=== PATIENT | male | born 1935 | race Caucasian/White ===

== ENCOUNTER 2016-09-24 11:33 | Emergency (ER) | payer MEDICARE ==
[2016-09-24] MEDS ORDERED: Ondansetron 4 MG/2 ML SDV IVPUSH ONE (11:57)
[2016-09-24] MEDS ORDERED: Sodium Chloride 0.9% 10 ML Syringe FLUSH PRN (11:57)
[2016-09-24] MEDS ORDERED: HYDROmorphone 1 MG/ML Syringe IVPUSH ONE (11:57)
[2016-09-24] MEDS ORDERED: Sodium Chloride 0.9% 1,000 ML IV SCH (12:00)
--- NOTE | 2016-09-24 12:04 | EDM.PDOC ---
ED HPI GENERAL MEDICAL PROBLEM - General Chief Complaint: Chest Pain Stated Complaint: SOB Time Seen by Provider: 09/24/16 11:42 Source of Information: Reports: Patient History Limitations: Reports: No Limitations - History of Present Illness INITIAL COMMENTS - FREE TEXT/NARRATIVE: the patient is a 72-year-old male with a history of multiple myeloma, atrial fibrillation, coronary disease, diabetes, hyperlipidemia, hypothyroidism, intercostal neuralgia, and CKD. He presents to the ED complaining of substernal chest discomfort. States 3 weeks prior he was moving a chair while eating. When doing so he fell backwards on his back. Since then has developed this pain to his chest described as severe worsened with coughing, palpation, turning left, and with inspiration. States he is chronically short of breath but notices increased recently due to inability to take a deep breath. He's had no diaphoresis, dizziness, presyncope or syncopal episodes, fever/chills, nausea/ vomiting, radiation of discomfort. Pain is currently a 10 out of 10. Described as being sharp with aggravating factors. Past medical history: Multiple myeloma currently in relapse, coronary disease, atrial position, pacemaker device, diabetes, hyperlipidemia, hypothyroidism, neuropathy, GERD, DJD, anemia Current medications include Decadron, Cymbalta, OxyContin, lysine, albuterol, fentanyl patch, potassium chloride, Protonix, hydromorphone, peroneal, sural toe , vitamin D 3, metoprolol succinate, acyclovir, Bactrim, levothyroxine, Zocor, acetaminophen, MiraLax, Duration: Constant, Waxing/Waning Location: Reports: Chest Quality: Reports: Ache, Pressure, Sharp, Throbbing Severity: Severe Improves with: Reports: Rest Worsens with: Reports: Other, Movement Context: Reports: Trauma Associated Symptoms: Reports: Chest Pain, Shortness of Breath. 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 20 mg PO WEEKLY 06/17/14 [History] Metoprolol Succinate [Toprol XL] 25 mg PO DAILY 06/17/14 [History] Simvastatin [Zocor] 10 mg PO BEDTIME 06/17/14 [History] oxyCODONE ER [OxyCONTIN] 20 mg PO Q12HR PRN 06/17/14 [History] Acetaminophen [Tylenol] 1,000 mg PO DAILY PRN 09/24/16 [History] Albuterol Sulfate [Proventil Hfa] 2 puff INH Q8H 09/24/16 [History] Cholecalciferol (Vitamin D3) [Vitamin D] 1,000 unit PO DAILY 09/24/16 [History] DULoxetine [Cymbalta] 40 mg PO DAILY 09/24/16 [History] HYDROmorphone [Dilaudid] 4 mg PO Q6H 09/24/16 [History] Pantoprazole Sodium [Protonix] 40 mg PO DAILY 09/24/16 [History] Polyethylene Glycol 3350 [MiraLAX] 1 tab PO DAILY PRN 09/24/16 [History] Potassium Chloride 10 meq PO DAILY 09/24/16 [History] Rivaroxaban [Xarelto] 15 mg PO DAILY 09/24/16 [History] Sulfamethoxazole/Trimethoprim [Sulfamethoxazole-Tmp Ds Tablet] 1 tab PO DAILY [History] fentaNYL [Fentanyl] 50 mcg TOP Q72H 09/24/16 [History] guaiFENesin [Guaifenesin] 1,200 mg PO BID 09/24/16 [History] Social & Family History - Tobacco Use Smoking Status *Q: Former Smoker Years of Tobacco use: 40 Used Tobacco, but Quit: Yes Month Tobacco Last Used: 1987 Second Hand Smoke Exposure: No - Alcohol Use Days Per Week of Alcohol Use: 0 Number of Drinks Per Day: 0 Total Drinks Per Week: 0 - Recreational Drug Use Recreational Drug Use: No Drug Use in Last 12 Months: No ED ROS GENERAL - Review of Systems Review Of Systems: See Below Constitutional: Reports: No Symptoms Respiratory: Reports: Shortness of Breath, Pleuritic Chest Pain. Denies: Wheezing, Cough, Sputum, Hemoptysis Cardiovascular: Reports: Chest Pain. Denies: Dyspnea on Exertion, Lightheadedness, Palpitations, Syncope GI/Abdominal: Reports: Constipation, Diarrhea. Denies: Abdominal Pain, Black Stool, Bloody Stool, Decreased Appetite, Difficulty Swallowing, Hematemesis, Nausea, Vomiting Musculoskeletal: Denies: Neck Pain, Shoulder Pain, Arm Pain, Back Pain Skin: Reports: No Symptoms ED EXAM, GENERAL - Physical Exam Exam: See Below Exam Limited By: No Limitations General Appearance: Alert, WD/WN, Moderate Distress Eye Exam: Bilateral Eye: PERRL Ears: Hearing Grossly Normal Nose: Normal Inspection Throat/Mouth: Normal Inspection, Normal Oropharynx, Normal Voice, No Airway Compromise Head: Atraumatic, Normocephalic Neck: Normal Inspection, Supple, Non-Tender, Full Range of Motion. No: Lymphadenopathy (L), Lymphadenopathy (R) Respiratory/Chest: No Respiratory Distress, Lungs Clear, Normal Breath Sounds, No Accessory Muscle Use, Other (tenderness noted with gentle palpation of the sternum. Pacemaker to the left upper chest: no painwith palpation, swelling, erythema noted. ) Cardiovascular: Normal Peripheral Pulses, Regular Rate, Rhythm, Systolic Murmur. No: No Edema (trace bilaterally) Peripheral Pulses: 2+: Radial (L), Radial (R) GI/Abdominal: Normal Bowel Sounds, Soft, Non-Tender, No Organomegaly, No Distention Back Exam: Normal Inspection Extremities: Normal Inspection, Non-Tender (posterior calves bilaterally), No Pedal Edema, Pedal Edema (trace bilaterally) Neurological: Alert, Oriented, CN II-XII Intact, Normal Cognition, No Motor/ Sensory Deficits Psychiatric: Normal Affect, Normal Mood Course - Vital Signs Last Recorded V/S: Last Vital Signs Temp 97.0 F 09/24/16 11:40 Pulse 66 09/24/16 15:57 Resp 14 09/24/16 15:57 BP 104/65 09/24/16 15:57 Pulse Ox 93 L 09/24/16 15:57 - Orders/Labs/Meds Orders: Active Orders 24 hr Category Date Time Status EKG 12 Lead [EKG Documentation Completion] [RC] STAT Care 09/24/16 11:40 Active Peripheral IV Care [RC] . DIRECTED Care 09/24/16 11:57 Active Peripheral IV Insertion Adult [OM.PC] Stat [facility] 09/24/16 11:56 Ordered Labs: Laboratory Tests 09/24/16 09/24/16 09/24/16 Range/Units 12:50 12:50 12:50 WBC 3.56 L (4.23-9.07) K/mm3 RBC 3.12 L (4.63-6.08) M/mm3 Hgb 9.7 L (13.7-17.5) gm/L Hct 30.7 L (40.1-51.0) % MCV 98.4 H (79.0-92.2) fl MCH 31.1 (25.7-32.2) pg MCHC 31.6 L (32.2-35.5) g/dl RDW Std Deviation 55.8 H (35.1-43.9) fL Plt Count 187 (163-337) K/mm3 MPV 9.6 (9.4-12.3) fl Neut % (Auto) 56.1 (34.0-67.9) % Lymph % (Auto) 30.1 (21.8-53.1) % [place] % (Auto) 9.0 (5.3-12.2) % Eos % (Auto) 4.2 (0.8-7.0) Baso % (Auto) 0.6 (0.1-1.2) % Neut # (Auto) 2.00 (1.78-5.38) K/mm3 Lymph # (Auto) 1.07 L (1.32-3.57) K/mm3 [place] # (Auto) 0.32 (0.30-0.82) K/mm3 Eos # (Auto) 0.15 (0.04-0.54) K/mm3 Baso # (Auto) 0.02 (0.01-0.08) K/mm3 PT 13.2 H (8.0-13.0) SECONDS INR 1.20 APTT (22-36) SECONDS Sodium 143 (136-145) mEq/L Potassium 3.6 (3.5-5.1) mEq/L Chloride 109 H (98-107) mEq/L Carbon Dioxide 23 (21-32) mEq/L Anion Gap 14.6 (5-15) BUN 25 H (7-18) mg/dL Creatinine 1.8 H (0.7-1.3) mg/dL Est Cr Clr Drug Dosing 35.88 mL/min Estimated GFR (MDRD) 37 (>60) mL/min BUN/Creatinine Ratio 13.9 L (14-18) Glucose 160 H (83-115) mg/dL Calcium 8.2 L (8.5-10.1) mg/dL Total Bilirubin 0.4 (0.2-1.0) mg/dL AST 15 (15-37) U/L ALT 17 (16-63) U/L Alkaline Phosphatase 62 (46-116) U/L Troponin I < 0.017 (0.00-0.056) ng/mL C-Reactive Protein < 0.2 (<1.0) mg/dL Total Protein 6.6 (6.4-8.2) g/dl Albumin 3.1 L (3.4-5.0) g/dl Globulin 3.5 gm/dL Albumin/Globulin Ratio 0.9 L (1-2) 09/24/16 Range/Units 12:50 WBC (4.23-9.07) K/mm3 RBC (4.63-6.08) M/mm3 Hgb (13.7-17.5) gm/L Hct (40.1-51.0) % MCV (79.0-92.2) fl MCH (25.7-32.2) pg MCHC (32.2-35.5) g/dl RDW Std Deviation (35.1-43.9) fL Plt Count (163-337) K/mm3 MPV (9.4-12.3) fl Neut % (Auto) (34.0-67.9) % Lymph % (Auto) (21.8-53.1) % [place] % (Auto) (5.3-12.2) % Eos % (Auto) (0.8-7.0) Baso % (Auto) (0.1-1.2) % Neut # (Auto) (1.78-5.38) K/mm3 Lymph # (Auto) (1.32-3.57) K/mm3 [place] # (Auto) (0.30-0.82) K/mm3 Eos # (Auto) (0.04-0.54) K/mm3 Baso # (Auto) (0.01-0.08) K/mm3 PT (8.0-13.0) SECONDS INR APTT 32 (22-36) SECONDS Sodium (136-145) mEq/L Potassium (3.5-5.1) mEq/L Chloride (98-107) mEq/L Carbon Dioxide (21-32) mEq/L Anion Gap (5-15) BUN (7-18) mg/dL Creatinine (0.7-1.3) mg/dL Est Cr Clr Drug Dosing mL/min Estimated GFR (MDRD) (>60) mL/min BUN/Creatinine Ratio (14-18) Glucose (83-115) mg/dL Calcium (8.5-10.1) mg/dL Total Bilirubin (0.2-1.0) mg/dL AST (15-37) U/L ALT (16-63) U/L Alkaline Phosphatase (46-116) U/L Troponin I (0.00-0.056) ng/mL C-Reactive Protein (<1.0) mg/dL Total Protein (6.4-8.2) g/dl Albumin (3.4-5.0) g/dl Globulin gm/dL Albumin/Globulin Ratio (1-2) Meds: Medications Discontinued Medications Generic Name Dose Route Start Last Admin Trade Name Freq PRN Reason Stop Dose Admin Hydromorphone HCl 1 mg 09/24/16 11:57 09/24/16 12:22 Dilaudid IVPUSH 09/24/16 11:58 1 mg ONETIME ONE Administration Sodium Chloride 1,000 mls @ 50 mls/hr 09/24/16 12:00 09/24/16 12:23 Normal Saline IV 50 mls/hr ASDIRECTED DYLON Administration Ondansetron HCl 4 mg 09/24/16 11:57 09/24/16 12:24 Zofran IVPUSH 09/24/16 11:58 4 mg ONETIME ONE Administration Sodium Chloride 10 ml 09/24/16 11:57 09/24/16 12:25 Saline Flush FLUSH 10 ml ASDIRECTED PRN Administration Keep Vein Open - Re-Assessments/Exams Free Text/Narrative Re-Assessment/Exam: 09/24/16 12:06 Order IV with normal saline at 50 mL per hour, Zofran, Dilaudid IVP. Initial labs and studies includes CMP, CBC, CMP, troponin, PT/INR, and PTT. EKG was obtained revealing AV dual paced complexes at a rate 81. Will wait for lab results we'll at that point obtain a CT of the chest with IV contrast. 09/24/16 13:35 Labs reviewed WBC 3.56, hemoglobin is 9.7, platelets 187, sodium 143, potassium 3.6, chloride 109, creatinine 1.8, troponin less than 0.017, CRP less than 0.2. Creatinine is elevated from baseline of what appears to be 1.2. Patient states CR has been as high as 2.[address] of chest ordered with no contrast. In addition patient is resting comfortably in bed. O2 sats have been dipping into the low 90's. Nursing staff will place O2 via NC on. 1448 CT of the chest impression: increase compression deformities within the thoracic spine from priors chest CT. Interval vertebral plasties are also noted. Interval change from prior study of a healed sternal fracture. Shared results of labs and CT study with patient. Patient has no known history of sternal fracture. Discussed with patient possibility of being transferred to [place] for further pain management to which he refuses at this point. Requested I contact his PCP to discuss further treatment plans at this point. Patient is currently on a fentanyl patch, Dilaudid, and oxycodone. 1500 Discussed patient with patients PCP Dr. Knight. Suggested increasing dilaudid to 4mg every 4 hrs. No change to fentanyl dose. Patient again refuses to be transferred to [facility] for further evaluation and pain management. Will discharge patient home with instructions. Departure - Departure Time of Disposition: 15:20 Disposition: Home, Self-Care 01 Condition: good Clinical Impression: Costal chondritis, Atypical chest pain Instructions: Nonspecific Chest Pain Referrals: Cally Knight MD [Primary Care Provider] - Forms: ED Department Discharge Additional Instructions: As discussed Dr. Knight suggests changing your dilaudid dose to 4mg every 4hrs from 6 hours. Will have you see followup with PCP this coming week for further pain management. Suggest not taking oxycodone with the dilaudid and fentanyl. Suggest seeing a pain specialists to discuss options for pain management. Return to the E.D. for any new or worsening symptoms. No driving while taking the narcotic medications. Refrain from any aggravating activities. - My Orders Last 24 Hours: My Active Orders 09/24/16 11:40 EKG 12 Lead [EKG Documentation Completion] [RC] STAT 09/24/16 11:56 Peripheral IV Insertion Adult [OM.PC] Stat 09/24/16 11:57 Peripheral IV Care [RC] . DIRECTED - Assessment/Plan Last 24 Hours: My Active Orders 09/24/16 11:40 EKG 12 Lead [EKG Documentation Completion] [RC] STAT 09/24/16 11:56 Peripheral IV Insertion Adult [OM.PC] Stat 09/24/16 11:57 Peripheral IV Care [RC] . DIRECTED
--- NOTE | 2016-09-24 14:26 | CT ---
CT chest Technique: Multiple axial sections through the chest were obtained. Intravenous contrast not utilized limiting the study and details. Comparison: Previous chest CT exam of 11/26/13. Findings: Atherosclerotic change is noted within the aorta. Moderate coronary artery calcification is seen. Artifact noted from pacer wires. Mediastinum and hilar regions show no adenopathy. No axillary adenopathy is seen. No pericardial thickening is seen. Minimal hiatal hernia is seen. Several cysts are noted within the left kidney. Lungs shows mild emphysematous change. Minimal increased density within both lung bases are noted compatible with minimal atelectasis/scarring. Lungs otherwise are clear. No pneumothorax or pleural effusion are seen. Bone window settings were reviewed which shows 3 vertebroplasties and other compression deformities within the thoracic spine. Compression deformities have increased in prominence as well as interval change of previous vertebroplasties. Old healed sternal fracture is also noted. Impression: 1. Increased compression deformities within the thoracic spine from prior chest CT. Interval vertebroplasties are also noted. 2. Interval change from prior study of healed sternal fracture. 3. Emphysematous change and other incidental findings. Nothing acute is otherwise seen on noncontrast chest CT. Diagnostic code #2
[2016-09-24 15:58] VITALS: BP 104/65
== END 2016-09-24 16:00 | disposition home or self-care (01) ==
LOC: JD.ED 11:33
DX: M94.0 Chondrocostal junction syndrome [Tietze] (principal); E11.22 Type 2 diabetes mellitus with diabetic chronic kidney disease; N18.9 Chronic kidney disease, unspecified; I25.10 Atherosclerotic heart disease of native coronary artery without angina pectoris; E78.5 Hyperlipidemia, unspecified; E03.9 Hypothyroidism, unspecified; K21.9 Gastro-esophageal reflux disease without esophagitis; D64.9 Anemia, unspecified; Z95.0 Presence of cardiac pacemaker; Z87.891 Personal history of nicotine dependence; Z79.899 Other long term (current) drug therapy
CPT/HCPCS: 36415; 71250; 80053; 84484; 85025; 85610; 85730; 86140; 93005; 96361; 96374; 96375; 99285; J1170; J2405; J7040; J7050; 99284

== ENCOUNTER 2016-10-01 08:44 | Day surgery (SDC) | payer MEDICARE, OTHER ==
[~2016-10-01 08:44] MED LIST: Lactated Ringers 1,000 ML IV SCH; Lidocaine 1%/Sod Bicarbonate in NS 8.4% 1 ML Syringe PRN; Sodium Chloride 0.9% 10 ML Syringe FLUSH PRN
[2016-10-01] MEDS ORDERED: Midazolam 1 MG/ML 2 ML SDV ONE (09:04)
[2016-10-01] MEDS ORDERED: Propofol 200 MG/20 ML SDV ONE (09:04)
[2016-10-01] MEDS ORDERED: fentaNYL 100 MCG/2 ML SDV ONE (09:04)
[2016-10-01] MEDS ORDERED: Lidocaine 1% 4 ML ONE (09:06)
[2016-10-01] MEDS ORDERED: Lidocaine 1% 50 ML MDV ONE (09:15)
[2016-10-01] MEDS ORDERED: Heparin Sodium 5,000 Units/ML Vial ONE (09:15)
--- NOTE | 2016-10-01 09:32 | PCM.PREANE ---
Preanesthetic Assessment - Procedure Proposed Procedure: Bone marrow biopsy and EGD - Anesthesia/Transfusion/Family Hx Anesthesia History: Prior Anesthesia Without Reaction Family History of Anesthesia Reaction: No Transfusion History: No Prior Transfusion(s) Intubation History: Unknown - Review of Systems General: Chills Pulmonary: Shortness of Breath, Cough Cardiovascular: Other (pacemaker 2005, hx of afib, coronary stent 2000 ) Gastrointestinal: No symptoms Neurological: No Symptoms Other: Reports: Easy Bleeding (last xarelto on tuesday ), Easy Bruising, Diabetes (diet controlled ), Thyroid Problems (hypothyroidism controlled with meds ) - Physical Assessment NPO Status Date: 09/30/16 NPO Status Time: 19:00 Pulse: 72 O2 Sat by Pulse Oximetry: 97 Respiratory Rate: 16 Blood Pressure: 153/73 Temperature: 36.2 C Height: 1.8 m Weight: 101.6 kg ASA Class: 3 Mental Status: Alert & Oriented x3 Airway Class: Mallampati = 1 Dentition: Reports: Normal Dentition Thyro-Mental Finger Breadths: 3 Mouth Opening Finger Breadths: 3 ROM/Head Extension: Limited/Partial Lungs: Clear to auscultation, Normal respiratory effort Cardiovascular: Irregular Rhythm (afib) - Allergies Allergies/Adverse Reactions: Allergies Allergy/AdvReac Type Severity Reaction Status Date / Time No Known Allergies Allergy Verified 09/30/16 14:32 - Blood Blood Available: No Product(s) Available: None - Anesthesia Plan Pre-Op Medication Ordered: None - Acknowledgements Anesthesia Type Planned: MAC Pt an Appropriate Candidate for the Planned Anesthesia: Yes Alternatives and Risks of Anesthesia Discussed w Pt/Guardian: Yes Pt/Guardian Understands and Agrees with Anesthesia Plan: Yes PreAnesthesia Questionnaire HEENT History: Reports: None Cardiovascular History: Reports: Afib, CAD, High Cholesterol, Hypertension, Pacemaker Respiratory History: Reports: SOB Gastrointestinal History: Reports: Chronic Constipation, Chronic Diarrhea, GERD Genitourinary History: Reports: Chronic Renal Insuffiency, Other (See Below) Other Genitourinary History: CKD III, increased uric acid, testicular pain ORGAN GRINDER History: Reports: None Musculoskeletal History: Reports: Other (See Below) Other Musculoskeletal History: degenerative joint disease, lumbago, muscle deconditioning, leg pain, rib pain, myofascial pain Neurological History: Reports: Neuropathy, Diabetic, Neuropathy, Peripheral, Other (See Below) Other Neuro History: intercostal neuralgia Psychiatric History: Reports: None Endocrine/Metabolic History: Reports: Diabetes, Type II, Hypothyroidism Hematologic History: Reports: Anemia, Iron Deficiency Immunologic History: Reports: Immunosuppression Oncologic (Cancer) History: Reports: Other (See Below) Other Oncologic History: multiple myeloma, skin cancer Dermatologic History: Reports: Other (See Below) Other Dermatologic History: nummular dermatitis - SUBSTANCE USE Smoking Status *Q: Former Smoker (quit 1987) Second Hand Smoke Exposure: No Days Per Week of Alcohol Use: 0 Number of Drinks Per Day: 0 Total Drinks Per Week: 0 Recreational Drug Use History: No - HOME MEDS Home Medications: Home Meds Levothyroxine Sodium [Synthroid] 125 mcg PO DAILY 11/26/13 [History] Allopurinol [Zyloprim] 200 mg PO DAILY 06/17/14 [History] Metoprolol Succinate [Toprol XL] 25 mg PO DAILY 06/17/14 [History] Simvastatin [Zocor] 10 mg PO BEDTIME 06/17/14 [History] oxyCODONE ER [OxyCONTIN] 20 mg PO Q12HR 06/17/14 [History] Acetaminophen [Tylenol] 1,000 mg PO TID PRN 09/24/16 [History] Albuterol Sulfate [Proventil Hfa] 2 puff INH Q8H 09/24/16 [History] Cholecalciferol (Vitamin D3) [Vitamin D] 1,000 unit PO DAILY 09/24/16 [History] DULoxetine [Cymbalta] 40 mg PO DAILY 09/24/16 [History] HYDROmorphone [Dilaudid] 4 mg PO Q6H 09/24/16 [History] Pantoprazole Sodium [Protonix] 40 mg PO DAILY 09/24/16 [History] Polyethylene Glycol 3350 [MiraLAX] 1 tab PO DAILY PRN 09/24/16 [History] Potassium Chloride 10 meq PO DAILY 09/24/16 [History] Rivaroxaban [Xarelto] 15 mg PO DAILY 09/24/16 [History] fentaNYL [Fentanyl] 50 mcg TOP Q72H 09/24/16 [History] Dexamethasone 20 mg PO WEEKLY 09/30/16 [History] - CURRENT (IN HOUSE) MEDS Current Meds: Current Medications Lactated Ringer's (Ringers, Lactated) 1,000 mls @ 125 mls/hr IV ASDIRECTED DYLON Stop: 10/01/16 23:00 Lidocaine/Sodium Bicarbonate (Buffered Lidocaine 1% In Ns 8.4%) 0.25 ml .XX ONETIME PRN PRN Reason: Prior to IV Start Stop: 10/01/16 18:00 Sodium Chloride (Saline Flush) 10 ml FLUSH ASDIRECTED PRN PRN Reason: Keep Vein Open Stop: 10/01/16 18:00 Discontinued Medications Fentanyl (Sublimaze) Confirm Administered Dose 100 mcg .ROUTE .STK-MED ONE Stop: 10/01/16 09:05 Lidocaine HCl (Xylocaine-Mpf 1%) Confirm Administered Dose 4 mls @ as directed .ROUTE .STK-MED ONE Stop: 10/01/16 09:07 Midazolam HCl (Versed 1 Mg/Ml) Confirm Administered Dose 2 mg .ROUTE .STK-MED ONE Stop: 10/01/16 09:05 Propofol (Diprivan 20 Ml) Confirm Administered Dose 200 mg .ROUTE .STK-MED ONE Stop: 10/01/16 09:05
--- NOTE | 2016-10-01 10:48 | PCM48HPAN ---
Post Anesthesia Note - EVALUATION WITHIN 48HRS OF ANESTHETIC Vital Signs in Normal Range: Yes Patient Participated in Evaluation: Yes Respiratory Function Stable: Yes (on 2L NC RN will wean down ) Airway Patent: Yes Cardiovascular Function Stable: Yes Hydration Status Stable: Yes Pain Control Satisfactory: Yes Nausea and Vomiting Control Satisfactory: Yes Mental Status Recovered: Yes
--- NOTE | 2016-10-01 10:53 | PCM.OPNOTE ---
- General Post-Op/Procedure Note Date of Surgery/Procedure: 10/01/16 Operative Procedure(s): 1. Bone marrow biopsy and aspiration. 2. Diagnostic EGD Pre Op Diagnosis: 1. Recurrent multiple myeloma. 2. Chest discomfort, non- cardiac. 3. Heartburn Post-Op Diagnosis: 1. Hiatal hernia. 2. Mild gastritis. 3. Recurrent multiple myeloma Anesthesia Technique: Local (5 mL), MAC Primary Surgeon: Celestina Frias Anesthesia Provider: Marquita Peterson Pathology: 1. Bone marrow biopsy 2. Bone marrow aspiration Fluid Replacement, Intraop: 300 (mL crystalloid ) EBL in mLs: 10 (aspirate of bone marrow ) Complications: None Condition: Good Free Text/Narrative:: INDICATION FOR PROCEDURE: The patient is a 80-year-old man who is referred to me by Dr. Lidia Lilly for bone marrow biopsy for recurrent multiple myeloma and non-cardiac chest pain and heartburn. I had last performed and EGD and colonoscopy for the patient in 2014. Bone marrow biopsy and diagnostic EGD had been discussed with the patient and risks of the associated procedure. The patient found these risks acceptable and agreed to proceed. DESCRIPTION OF PROCEDURE: The patient was taken to the operating room and placed in the left lateral decubitus position. After induction of adequate sedation, a bite block was placed. Attention was then turned to the patient's bone marrow biopsy. The right posterior iliac crest was identified anatomically and the area was prepped with chlorhexidine. 5 mL of local anesthetic was injected into the target insertion site into the posterior iliac crest and associated periosteum. A small stab incision was made using a scalpel after a sterile drape was applied. A [employer] Monoject bone marrow biopsy kit was utilized. The bone marrow core biopsy needle was introduced into the posterior iliac crest and the inner cannula removed. 10 mL of bone marrow was aspirated without difficulty and passed immediately off the field to pathology for preparation of slides and transferred into appropriate containers for flow cytometry. The bone marrow biopsy needle was removed and pressure was held. The inner cannula was replaced and the biopsy trocar was once again introduced through the incision site and placed in a slightly different position on the posterior iliac crest for obtaining a core bone marrow sample. A core sample was obtained and pressure was held wall I reviewed the sample with pathology. The sample did appear to be adequate and pathology immediately made slides from the sample. Pressure was held at the incision site for a total of 5 minutes. A folded 4 x 4 and Bandaid were placed followed by a Kerlix roll. An additional peripheral blood specimen was withdrawn for performance of the peripheral smear and complete blood count. Attention was turned to the EGD. A standard Olympus gastroscope was inserted into the oropharynx and guided down the esophagus without difficulty. The gastroesophageal junction was appreciated at 38 cm from the teeth. There was no evidence of stricture or esophageal ulcerations. The scope was advanced into the stomach, and there was mild gastritis. The scope was passed into the proximal jejunum and the duodenum which were unremarkable. There were no petechiae or ulcerations. The proximal jejunum was grossly normal in appearance. The scope was withdrawn into the antrum and remainder of the gastric body was examined, and there were no other abnormalities. The scope was retroflexed, and there was a hiatal hernia. The scope was straightened and withdrawn to the GE junction. Additional cold forceps biopsies were obtained of the distal esophagus. The scope was withdrawn through the remainder of the esophagus and no further abnormalities were noted. The posterior oropharynx was grossly normal in appearance. The scope was then fully withdrawn. The patient was awakened from sedation and transferred to the recovery room in stable condition having tolerated the procedure well. POSTOPERATIVE PLAN: I discussed with the patient's family my intraoperative findings and postoperative recommendations. The patient will follow up in with Dr. Lilly as scheduled for further management. I have asked the patient to follow a GERD\gastritis diet. The patient is to call with any worsening of symptoms or questions prior to appointment.
[2016-10-01 11:33] VITALS: BP 132/64
== END 2016-10-01 11:32 | disposition home or self-care (01) ==
LOC: JD.SDS 08:44
PROVIDERS: ATTEND Surgery
DX: K29.70 Gastritis, unspecified, without bleeding (principal); C90.01 Multiple myeloma in remission; K44.9 Diaphragmatic hernia without obstruction or gangrene; R07.1 Chest pain on breathing; R06.02 Shortness of breath; D50.9 Iron deficiency anemia, unspecified; K21.9 Gastro-esophageal reflux disease without esophagitis; E03.9 Hypothyroidism, unspecified; N18.3 Chronic kidney disease, stage 3 (moderate); R73.9 Hyperglycemia, unspecified; E78.2 Mixed hyperlipidemia; I13.10 Hypertensive heart and chronic kidney disease without heart failure, with stage 1 through stage 4 chronic kidney disease, or unspecified chronic kidney disease; I25.10 Atherosclerotic heart disease of native coronary artery without angina pectoris; Z95.0 Presence of cardiac pacemaker; Z79.899 Other long term (current) drug therapy
CPT/HCPCS: 36415; 38221; 43235; 85025; 85097; 88184; 88185; 88187; 88188; 88189; 88305; 88311; 88313; 88341; 88342; G0364; J1644; J2250; J3010; J7120; 01112; 81206; 81207; J2704

== ENCOUNTER 2017-02-28 11:32 | Observation (INO) | payer MEDICARE, OTHER ==
[2017-02-28] MEDS ORDERED: Sodium Chloride 0.9% 10 ML Syringe FLUSH PRN (12:12)
[2017-02-28] MEDS: Sodium Chloride 0.9% 1,000 ML IV SCH ×5 (12:23→22:54)
--- NOTE | 2017-02-28 12:40 | EDM.PDOC ---
ED HPI GENERAL MEDICAL PROBLEM - General Chief Complaint: Neurological Problem Stated Complaint: BLOOD LEVEL ISSUES SENT BY DR Doyle Time Seen by Provider: 02/28/17 11:46 Source of Information: Reports: Patient, RN Notes Reviewed - History of Present Illness INITIAL COMMENTS - FREE TEXT/NARRATIVE: 81-year-old male has been sent over from [facility] for evaluation and treatment of generalized weakness, mild confusion. He does have history of multiple myeloma. His last chemotherapy was one week ago. He has not had apparent fever or chills. He did eat a light breakfast this morning. He does feel weak dizzy lightheaded when standing or walking. No chest or abdominal pain at this time. Not coughing any more than usual. Some shortness of breath. Back Pain Score (Numeric/FACES): 5 - Related Data Allergies Allergy/AdvReac Type Severity Reaction Status Date / Time No Known Allergies Allergy Verified 02/28/17 11:56 Home Meds: Home Meds Levothyroxine Sodium [Synthroid] 125 mcg PO DAILY 11/26/13 [History] Allopurinol [Zyloprim] 200 mg PO DAILY 06/17/14 [History] Metoprolol Succinate [Toprol XL] 50 mg PO DAILY 06/17/14 [History] Simvastatin [Zocor] 10 mg PO BEDTIME 06/17/14 [History] oxyCODONE ER [OxyCONTIN] 20 mg PO Q12HR 06/17/14 [History] Acetaminophen [Tylenol] 1,000 mg PO BID PRN 09/24/16 [History] Albuterol Sulfate [Proventil Hfa] 2 puff INH Q8H PRN 09/24/16 [History] Cholecalciferol (Vitamin D3) [Vitamin D] 1,000 unit PO DAILY 09/24/16 [History] DULoxetine [Cymbalta] 20 mg PO BID 09/24/16 [History] HYDROmorphone [Dilaudid] 4 mg PO Q6H PRN 09/24/16 [History] Pantoprazole Sodium [Protonix] 40 mg PO DAILY 09/24/16 [History] Polyethylene Glycol 3350 [MiraLAX] 1 tab PO DAILY PRN 09/24/16 [History] Potassium Chloride 10 meq PO DAILY 09/24/16 [History] Rivaroxaban [Xarelto] 15 mg PO DAILY 09/24/16 [History] fentaNYL [Fentanyl] 50 mcg TOP Q72H 09/24/16 [History] Dexamethasone 20 mg PO WEEKLY 09/30/16 [History] Advair Inhaler. 1 puff INH BID 02/28/17 [History] Lenalidomide [Revlimid] 10 mg PO ASDIRECTED 02/28/17 [History] Past Medical History HEENT History: Reports: None Cardiovascular History: Reports: Afib, CAD, High Cholesterol, Hypertension, Pacemaker Respiratory History: Reports: SOB Gastrointestinal History: Reports: Chronic Constipation, Chronic Diarrhea, GERD Genitourinary History: Reports: Chronic Renal Insuffiency, Other (See Below) Other Genitourinary History: CKD III, increased uric acid, testicular pain [employer] History: Reports: None Musculoskeletal History: Reports: Other (See Below) Other Musculoskeletal History: degenerative joint disease, lumbago, muscle deconditioning, leg pain, rib pain, myofascial pain Neurological History: Reports: Neuropathy, Diabetic, Neuropathy, Peripheral, Other (See Below) Other Neuro History: intercostal neuralgia Psychiatric History: Reports: None Endocrine/Metabolic History: Reports: Diabetes, Type II, Hypothyroidism Hematologic History: Reports: Anemia, Iron Deficiency Immunologic History: Reports: Immunosuppression Oncologic (Cancer) History: Reports: Other (See Below) Other Oncologic History: multiple myeloma, skin cancer Dermatologic History: Reports: Other (See Below) Other Dermatologic History: nummular dermatitis Social & Family History - Tobacco Use Smoking Status *Q: Unknown Ever Smoked Years of Tobacco use: 40 Used Tobacco, but Quit: Yes Month Tobacco Last Used: 1987 Second Hand Smoke Exposure: No - Caffeine Use Caffeine Use: Reports: None - Alcohol Use Days Per Week of Alcohol Use: 0 Number of Drinks Per Day: 0 Total Drinks Per Week: 0 - Recreational Drug Use Recreational Drug Use: No Drug Use in Last 12 Months: No ED ROS GENERAL - Review of Systems Review Of Systems: See Below Constitutional: Reports: Weakness (Generalized), Fatigue. Denies: Fever, Chills HEENT: Denies: Sinus Problem, Throat Pain, Vertigo Respiratory: Reports: Shortness of Breath. Denies: Pleuritic Chest Pain, Cough Cardiovascular: Denies: Chest Pain GI/Abdominal: Reports: Decreased Appetite, Nausea (Intermittent mild). Denies: Abdominal Pain, Vomiting Musculoskeletal: Denies: Joint Pain Skin: Reports: No Symptoms Neurological: Reports: Dizziness, Difficulty Walking (Dizzy, weak and lightheaded when standing or walking), Weakness (Generalized). Denies: Numbness , Tingling, Trouble Speaking ED EXAM, NEURO - Physical Exam Exam: See Below Exam Limited By: Altered Mental Status (Patient mildly drowsy, somewhat slow to respond to questions, mildly confused) General Appearance: Alert, No Apparent Distress Eye Exam: Bilateral Eye: PERRL Throat/Mouth: Normal Inspection, Normal Oropharynx Head Exam: Atraumatic. No: Facial Swelling Neck: Supple, Full Range of Motion Respiratory/Chest: No Respiratory Distress, Lungs Clear, Normal Breath Sounds. No: Rhonchi, Wheezing Cardiovascular: Regular Rate, Rhythm GI/Abdominal: Soft, Non-Tender. No: Guarding, Rebound Neurological: Alert, No Motor/Sensory Deficits, Other (Patient is mildly slow to respond but does answer simple questions appropriately although family repeatedly states patient is confused from normal baseline status) Back Exam: No: CVA Tenderness (L), CVA Tenderness (R) Extremities: Normal Inspection. No: Pedal Edema, Leg Pain Skin Exam: Warm, Dry, Pallor EKG INTERPRETATION EKG Date: 02/28/17 Time: 12:41 Rhythm: Other (Intermittently paced rhythm, right bundle branch block, abnormal EKG) Course - Vital Signs Last Recorded V/S: Last Vital Signs Temp 97.8 F 02/28/17 11:56 Pulse 70 02/28/17 11:56 Resp BP 135/77 02/28/17 11:56 Pulse Ox 98 02/28/17 11:56 - Orders/Labs/Meds Orders: Active Orders 24 hr Category Date Time Status EKG 12 Lead [EKG Documentation Completion] [RC] STAT Care 02/28/17 12:11 Active Peripheral IV Care [RC] . DIRECTED Care 02/28/17 12:13 Active CXR [Chest 2V] [CR] Stat Exams 02/28/17 12:42 Taken CULTURE BLOOD [BC] Stat Lab 02/28/17 12:38 Received UA W/MICROSCOPIC [URIN] Stat Lab 02/28/17 13:59 Uncollected Sodium Chloride 0.9% [Normal Saline] 1,000 ml Med 02/28/17 12:15 Active IV ASDIRECTED Sodium Chloride 0.9% [Normal Saline] 1,000 ml Med 02/28/17 14:15 Active IV ONETIME Sodium Chloride 0.9% [Saline Flush] Med 02/28/17 12:12 Active 10 ml FLUSH ASDIRECTED PRN Peripheral IV Insertion Adult [OM.PC] Stat Oth 02/28/17 12:12 Ordered Medication Orders Sodium Chloride (Normal Saline) 1,000 mls @ 150 mls/hr IV ASDIRECTED DYLON Last Admin: 02/28/17 12:23 Dose: 150 mls/hr Sodium Chloride (Normal Saline) 1,000 mls @ 999 mls/hr IV ONETIME DYLON Last Admin: 02/28/17 14:23 Dose: 999 mls/hr Sodium Chloride (Saline Flush) 10 ml FLUSH ASDIRECTED PRN PRN Reason: Keep Vein Open Last Admin: 02/28/17 12:23 Dose: 10 ml Labs: Laboratory Tests 02/28/17 02/28/17 02/28/17 Range/Units 12:38 12:38 12:38 WBC 5.72 (4.23-9.07) K/mm3 RBC 3.23 L (4.63-6.08) M/mm3 Hgb 10.0 L (13.7-17.5) gm/L Hct 31.0 L (40.1-51.0) % MCV 96.0 H (79.0-92.2) fl MCH 31.0 (25.7-32.2) pg MCHC 32.3 (32.2-35.5) g/dl RDW Std Deviation 52.3 H (35.1-43.9) fL Plt Count 110 L (163-337) K/mm3 MPV 12.3 (9.4-12.3) fl Neut % (Auto) 75.7 H (34.0-67.9) % Lymph % (Auto) 15.4 L (21.8-53.1) % Harding % (Auto) 5.6 (5.3-12.2) % Eos % (Auto) 2.8 (0.8-7.0) Baso % (Auto) 0.2 (0.1-1.2) % Neut # (Auto) 4.33 (1.78-5.38) K/mm3 Lymph # (Auto) 0.88 L (1.32-3.57) K/mm3 Harding # (Auto) 0.32 (0.30-0.82) K/mm3 Eos # (Auto) 0.16 (0.04-0.54) K/mm3 Baso # (Auto) 0.01 (0.01-0.08) K/mm3 Sodium 139 (136-145) mEq/L Potassium 3.6 (3.5-5.1) mEq/L Chloride 105 (98-107) mEq/L Carbon Dioxide 24 (21-32) mEq/L Anion Gap 13.6 (5-15) BUN 38 H (7-18) mg/dL Creatinine 3.6 H (0.7-1.3) mg/dL Est Cr Clr Drug Dosing 17.72 mL/min Estimated GFR (MDRD) 16 (>60) mL/min BUN/Creatinine Ratio 10.6 L (14-18) Glucose 145 H (83-115) mg/dL Lactic Acid (0.4-2.0) mmol/L Calcium 11.7 H (8.5-10.1) mg/dL Total Bilirubin 0.4 (0.2-1.0) mg/dL AST 19 (15-37) U/L ALT 8 L (16-63) U/L Alkaline Phosphatase 57 (46-116) U/L C-Reactive Protein 4.3 H* (<1.0) mg/dL Total Protein 8.2 (6.4-8.2) g/dl Albumin 2.6 L (3.4-5.0) g/dl Globulin 5.6 gm/dL Albumin/Globulin Ratio 0.5 L (1-2) 02/28/17 Range/Units 12:38 WBC (4.23-9.07) K/mm3 RBC (4.63-6.08) M/mm3 Hgb (13.7-17.5) gm/L Hct (40.1-51.0) % MCV (79.0-92.2) fl MCH (25.7-32.2) pg MCHC (32.2-35.5) g/dl RDW Std Deviation (35.1-43.9) fL Plt Count (163-337) K/mm3 MPV (9.4-12.3) fl Neut % (Auto) (34.0-67.9) % Lymph % (Auto) (21.8-53.1) % Harding % (Auto) (5.3-12.2) % Eos % (Auto) (0.8-7.0) Baso % (Auto) (0.1-1.2) % Neut # (Auto) (1.78-5.38) K/mm3 Lymph # (Auto) (1.32-3.57) K/mm3 Harding # (Auto) (0.30-0.82) K/mm3 Eos # (Auto) (0.04-0.54) K/mm3 Baso # (Auto) (0.01-0.08) K/mm3 Sodium (136-145) mEq/L Potassium (3.5-5.1) mEq/L Chloride (98-107) mEq/L Carbon Dioxide (21-32) mEq/L Anion Gap (5-15) BUN (7-18) mg/dL Creatinine (0.7-1.3) mg/dL Est Cr Clr Drug Dosing mL/min Estimated GFR (MDRD) (>60) mL/min BUN/Creatinine Ratio (14-18) Glucose (83-115) mg/dL Lactic Acid 1.3 (0.4-2.0) mmol/L Calcium (8.5-10.1) mg/dL Total Bilirubin (0.2-1.0) mg/dL AST (15-37) U/L ALT (16-63) U/L Alkaline Phosphatase (46-116) U/L C-Reactive Protein (<1.0) mg/dL Total Protein (6.4-8.2) g/dl Albumin (3.4-5.0) g/dl Globulin gm/dL Albumin/Globulin Ratio (1-2) Meds: Medications Generic Name Dose Route Start Last Admin Trade Name Freq PRN Reason Stop Dose Admin Sodium Chloride 1,000 mls @ 150 mls/hr 02/28/17 12:15 02/28/17 12:23 Normal Saline IV 150 mls/hr ASDIRECTED DYLON Administration Sodium Chloride 1,000 mls @ 999 mls/hr 02/28/17 14:15 02/28/17 14:23 Normal Saline IV 999 mls/hr ONETIME DYLON Administration Sodium Chloride 10 ml 02/28/17 12:12 02/28/17 12:23 Saline Flush FLUSH 10 ml ASDIRECTED PRN Administration Keep Vein Open - Re-Assessments/Exams Free Text/Narrative Re-Assessment/Exam: 02/28/17 14:30. Creatinine came back 3.6, BUN 38, calcium 11.8, potassium 3.6, sodium 139. Globin 10 which is about his baseline. I do not have a recent chemistries available for review. Patient will be admitted for hydration and further treatment as needed. Departure - Departure Time of Disposition: 14:40 Disposition: Admitted As Inpatient 68 Condition: Serious Clinical Impression: Renal insufficiency Multiple myeloma Qualifiers: Multiple myeloma remission status: unspecified Qualified Code(s): C90.00 - Multiple myeloma not having achieved remission - Discharge Information Referrals: Lidia Lilly MD [Primary Care Provider] - Forms: ED Department Discharge ED Communication - Discussed Case With (1) Discussed Case With (1): Admitting Provider (Ree, decision to admit at about 14:40.) - My Orders Last 24 Hours: My Active Orders 02/28/17 12:11 EKG 12 Lead [EKG Documentation Completion] [RC] STAT 02/28/17 12:12 Sodium Chloride 0.9% [Saline Flush] 10 ml FLUSH ASDIRECTED PRN Peripheral IV Insertion Adult [OM.PC] Stat 02/28/17 12:13 Peripheral IV Care [RC] . DIRECTED 02/28/17 12:15 Sodium Chloride 0.9% [Normal Saline] 1,000 ml IV ASDIRECTED 02/28/17 12:38 CULTURE BLOOD [BC] Stat 02/28/17 12:42 CXR [Chest 2V] [CR] Stat 02/28/17 13:59 UA W/MICROSCOPIC [URIN] Stat 02/28/17 14:15 Sodium Chloride 0.9% [Normal Saline] 1,000 ml IV ONETIME - Assessment/Plan Last 24 Hours: My Active Orders 02/28/17 12:11 EKG 12 Lead [EKG Documentation Completion] [RC] STAT 02/28/17 12:12 Sodium Chloride 0.9% [Saline Flush] 10 ml FLUSH ASDIRECTED PRN Peripheral IV Insertion Adult [OM.PC] Stat 02/28/17 12:13 Peripheral IV Care [RC] . DIRECTED 02/28/17 12:15 Sodium Chloride 0.9% [Normal Saline] 1,000 ml IV ASDIRECTED 02/28/17 12:38 CULTURE BLOOD [BC] Stat 02/28/17 12:42 CXR [Chest 2V] [CR] Stat 02/28/17 13:59 UA W/MICROSCOPIC [URIN] Stat 02/28/17 14:15 Sodium Chloride 0.9% [Normal Saline] 1,000 ml IV ONETIME
--- NOTE | 2017-02-28 15:38 | CR ---
Chest: Two views of the chest were obtained. Comparison: Prior chest x-ray of 09/24/16 and chest x-ray of 11/26/13. Heart size appears within normal limits. Tortuous thoracic aorta is seen. Pacemaker is noted. Lungs are clear with no acute infiltrates. Previous vertebroplasty is seen within multiple compression deformities. Slight degenerative change is noted within the spine. Mild pleural thickening is noted within the right upper chest which appears to be due to healing right upper rib fractures. Impression: 1. Pleural thickening from healing right upper rib fractures. 2. Nothing acute is seen on two-view chest x-ray. Diagnostic code #3
[2017-02-28] MEDS ORDERED: POLYETHYLENE GLYCOL 17 GM PO PRN (16:07)
[2017-02-28] MEDS ORDERED: Albuterol 6.7 GM Inhaler INH PRN (16:07)
[2017-02-28] MEDS ORDERED: HYDROMORPHONE 4 MG PO PRN (16:07)
[2017-02-28] MEDS ORDERED: Ondansetron 4 MG/2 ML SDV IVPUSH PRN (16:24)
--- NOTE | 2017-02-28 16:34 | PCM.HP ---
H&P History of Present Illness - General Date of Service: 02/28/17 Admit Problem/Dx: Admission Diagnosis/Problem Admission Diagnosis/Problem Renal insufficiency Source of Information: Patient, Family, Provider History Limitations: Reports: No Limitations - History of Present Illness Initial Comments - Free Text/Narative: 81 year old male with PMH of MM presents with generalized weakness. He was sent to the ED at [facility] from [facility]. He has had CTX, the last treatment occurred over a week ago. He has had a longstanding history of loss of appetite since CTX, however today he feels more weak. He denies syncopal, presyncopal episode. He admits to dizziness without change in position. There have been no known sick contacts. Laboratory results document acute on chronic renal failure. His potassium is WNL. Onset of Symptoms: Reports: Gradual Duration of Symptoms: Reports: Day(s):, Getting Worse Location: Reports: Generalized Severity: Moderate Improves with: Reports: Medication Worsens with: Reports: None Associated Symptoms: Reports: Malaise, Nausea/Vomiting, Weakness Back Pain Score (Numeric/FACES): 5 - Related Data Allergies/Adverse Reactions: Allergies Allergy/AdvReac Type Severity Reaction Status Date / Time No Known Allergies Allergy Verified 02/28/17 16:33 Home Medications: Home Meds Levothyroxine Sodium [Synthroid] 125 mcg PO DAILY 11/26/13 [History] Allopurinol [Zyloprim] 200 mg PO DAILY 06/17/14 [History] Metoprolol Succinate [Toprol XL] 50 mg PO DAILY 06/17/14 [History] Simvastatin [Zocor] 10 mg PO BEDTIME 06/17/14 [History] oxyCODONE ER [OxyCONTIN] 20 mg PO Q12HR 06/17/14 [History] Acetaminophen [Tylenol] 1,000 mg PO BID PRN 09/24/16 [History] Albuterol Sulfate [Proventil Hfa] 2 puff INH Q8H PRN 09/24/16 [History] Cholecalciferol (Vitamin D3) [Vitamin D] 1,000 unit PO DAILY 09/24/16 [History] DULoxetine [Cymbalta] 20 mg PO BID 09/24/16 [History] HYDROmorphone [Dilaudid] 4 mg PO Q6H PRN 09/24/16 [History] Pantoprazole Sodium [Protonix] 40 mg PO DAILY 09/24/16 [History] Polyethylene Glycol 3350 [MiraLAX] 1 tab PO DAILY PRN 09/24/16 [History] Potassium Chloride 10 meq PO DAILY 09/24/16 [History] Rivaroxaban [Xarelto] 15 mg PO DAILY 09/24/16 [History] fentaNYL [Fentanyl] 50 mcg TOP Q72H 09/24/16 [History] Dexamethasone 20 mg PO WEEKLY 09/30/16 [History] Advair Inhaler. 1 puff INH BID 02/28/17 [History] Lenalidomide [Revlimid] 10 mg PO ASDIRECTED 02/28/17 [History] Past Medical History HEENT History: Reports: Cataract, Impaired Vision, Other (See Below) Other HEENT History: wears glasses Cardiovascular History: Reports: Afib, CAD, High Cholesterol, Hypertension, Pacemaker Respiratory History: Reports: COPD, Sleep Apnea, SOB Gastrointestinal History: Reports: Chronic Constipation, GERD Genitourinary History: Reports: Chronic Renal Insuffiency, Other (See Below) Other Genitourinary History: CKD III, increased uric acid, testicular pain in the past [employer] History: Reports: None Musculoskeletal History: Reports: Back Pain, Chronic, Other (See Below) Other Musculoskeletal History: leg pain Neurological History: Reports: Neuropathy, Diabetic, Neuropathy, Peripheral, Other (See Below) Other 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 Psychiatric History: Reports: None Endocrine/Metabolic History: Reports: Diabetes, Type II, Hypothyroidism Hematologic History: Reports: Anemia, Iron Deficiency Immunologic History: Reports: Immunosuppression Oncologic (Cancer) History: Reports: Squamous Cell Carcinoma, Other (See Below) Other Oncologic History: multiple myeloma, skin cancer, 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 Dermatologic History: Reports: Other (See Below) Other Dermatologic History: dry skin - Infectious Disease History Infectious Disease History: Reports: Herpes, Measles, Mumps - Past Surgical History HEENT Surgical History: Reports: Cataract Surgery Cardiovascular Surgical History: Reports: Other (See Below) Other Cardiovascular Surgeries/Procedures: stents placed 2002 Respiratory Surgical History: Reports: None GI Surgical History: Reports: Colonoscopy Endocrine Surgical History: Reports: None Neurological Surgical History: Reports: Other (See Below) Other Neurological Surgeries/Procedures: had two kyphoplasty Musculoskeletal Surgical History: Reports: None Dermatological Surgical History: Reports: Skin Biopsy Social & Family History - Family History Family Medical History: Noncontributory - Tobacco Use Smoking Status *Q: Former Smoker Years of Tobacco use: 40 Used Tobacco, but Quit: Yes Month Tobacco Last Used: 1999 Second Hand Smoke Exposure: No - Caffeine Use Caffeine Use: Reports: Coffee, Soda, Tea - Alcohol Use Days Per Week of Alcohol Use: 0 Number of Drinks Per Day: 0 Total Drinks Per Week: 0 - Recreational Drug Use Recreational Drug Use: No Drug Use in Last 12 Months: No H&P Review of Systems - Review of Systems: Review Of Systems: See Below General: Reports: Malaise, Weakness, Fatigue HEENT: Reports: No Symptoms Pulmonary: Reports: No Symptoms Cardiovascular: Reports: No Symptoms Gastrointestinal: Reports: Decreased Appetite, Nausea, Vomiting Genitourinary: Reports: No Symptoms Musculoskeletal: Reports: No Symptoms Skin: Reports: No Symptoms Psychiatric: Reports: Confusion Neurological: Reports: No Symptoms Hematologic/Lymphatic: Reports: No Symptoms Immunologic: Reports: No Symptoms Exam - Exam Exam: See Below - Vital Signs Vital Signs: Last Vital Signs Temp 36.6 C 02/28/17 11:56 Pulse 70 02/28/17 11:56 Resp BP 135/77 02/28/17 11:56 Pulse Ox 98 02/28/17 11:56 Weight: 92.76 kg - Exam Quality Assessment: Supplemental Oxygen, DVT Prophylaxis General: Alert, Oriented, Cooperative HEENT: EOMI, Nares Patent, Normal Nasal Septum, Pupils Equal, Pupils Reactive, PERRLA Neck: Supple, Trachea Midline Lungs: Normal Respiratory Effort Cardiovascular: Regular Rate, Irregular Rhythm GI/Abdominal Exam: Normal Bowel Sounds, Soft, Non-Tender, No Organomegaly, No Distention (Male) Exam: Deferred Rectal (Males) Exam: Deferred Back Exam: Normal Inspection Extremities: Normal Inspection Skin: Warm Neurological: Cranial Nerves Intact Neuro Extensive - Mental Status: Alert, Oriented x3, Normal Mood/Affect, Normal Cognition Neuro Extensive - Motor, Sensory, Reflexes: CN II-XII Intact Psychiatric: Alert, Normal Affect, Normal Mood - Patient Data Result Diagrams: 02/28/17 12:38 02/28/17 12:38 *Q Meaningful Use (ADM) - VTE *Q VTE Criteria *Q: - Stroke *Q Stroke Criteria *Q: - AMI *Q AMI Criteria *Q: - Problem List (1) A-fib SNOMED Code(s): 13638487 ICD Code: I48.91 - UNSPECIFIED ATRIAL FIBRILLATION Status: Acute Current Visit: Yes (2) CAD (coronary artery disease) SNOMED Code(s): 30738700 ICD Code: I25.10 - ATHSCL HEART DISEASE OF [place] CORONARY ARTERY W/O ANG PCTRS Status: Acute Current Visit: Yes (3) Hyperlipidemia SNOMED Code(s): 31602640 ICD Code: E78.5 - HYPERLIPIDEMIA, UNSPECIFIED Status: Acute Current Visit : Yes (4) Chronic kidney disease SNOMED Code(s): 316825980 ICD Code: N18.9 - CHRONIC KIDNEY DISEASE, UNSPECIFIED Status: Acute Current Visit: Yes (5) Acute renal failure SNOMED Code(s): 00906434 ICD Code: N17.9 - ACUTE KIDNEY FAILURE, UNSPECIFIED Status: Acute Current Visit: Yes (6) Hypothyroidism SNOMED Code(s): 59546619 ICD Code: E03.9 - HYPOTHYROIDISM, UNSPECIFIED Status: Acute Current Visit : Yes (7) GERD (gastroesophageal reflux disease) SNOMED Code(s): 915921080 ICD Code: K21.9 - GASTRO-ESOPHAGEAL REFLUX DISEASE WITHOUT ESOPHAGITIS Status: Acute Current Visit: Yes (8) Multiple myeloma SNOMED Code(s): 616435111 ICD Code: C90.00 - MULTIPLE MYELOMA NOT HAVING ACHIEVED REMISSION Status: Acute Current Visit: Yes Qualifiers: Multiple myeloma remission status: unspecified Qualified Code(s): C90.00 - Multiple myeloma not having achieved remission (9) Renal insufficiency SNOMED Code(s): 850942420 ICD Code: N28.9 - DISORDER OF KIDNEY AND URETER, UNSPECIFIED Status: Acute Current Visit: Yes (10) Constipation SNOMED Code(s): 99376279 ICD Code: K59.00 - CONSTIPATION, UNSPECIFIED Status: Acute Current Visit : No Onset Date: 06/17/14 Problem List Initiated/Reviewed/Updated: Yes Orders Last 24hrs: Active Orders 24 hr Category Date Time Status Admission Status [Patient Status] [ADT] Routine ADT 02/28/17 15:30 Active Patient Status [ADT] Routine ADT 02/28/17 15:33 Active Clear Liquid Diet [DIET] Diet 02/28/17 Dinner Ordered BMP [BASIC METABOLIC PANEL,BMP] [CHEM] DAILY Lab 03/01/17 05:00 Ordered BMP [BASIC METABOLIC PANEL,BMP] [CHEM] DAILY Lab 03/02/17 05:00 Ordered BMP [BASIC METABOLIC PANEL,BMP] [CHEM] DAILY Lab 03/03/17 05:00 Ordered CALCIUM, IONIZED [REF] DAILY Lab 03/01/17 05:00 Ordered CALCIUM, IONIZED [REF] DAILY Lab 03/02/17 05:00 Ordered CALCIUM, IONIZED [REF] DAILY Lab 03/03/17 05:00 Ordered CBC WITH AUTO DIFF [HEME] DAILY Lab 03/01/17 05:00 Ordered CBC WITH AUTO DIFF [HEME] DAILY Lab 03/02/17 05:00 Ordered CBC WITH AUTO DIFF [HEME] DAILY Lab 03/03/17 05:00 Ordered CRP [C-REACTIVE PROTEIN] [CHEM] DAILY Lab 03/01/17 05:00 Ordered CRP [C-REACTIVE PROTEIN] [CHEM] DAILY Lab 03/02/17 05:00 Ordered CRP [C-REACTIVE PROTEIN] [CHEM] DAILY Lab 03/03/17 05:00 Ordered INFLUENZA A+B AG SCREEN [RM] Routine Lab 02/28/17 16:28 Uncollected URINALYSIS W/MICROSCOPIC [UA W/MICROSCOPIC] [URIN] Lab 02/28/17 16:28 Uncollected Routine Acetaminophen [Tylenol] Med 02/28/17 16:07 Ordered 1,000 mg PO BID PRN Albuterol [Proventil HFA] Med 02/28/17 16:07 Ordered DOSE gm INH Q8H PRN Allopurinol [Zyloprim] Med 03/01/17 09:00 Ordered 200 mg PO DAILY DULoxetine [Cymbalta] Med 02/28/17 21:00 Ordered 20 mg PO BID Dexamethasone Med 02/28/17 16:15 Ordered 20 mg PO WEEKLY Dronabinol [Marinol] Med 02/28/17 16:30 Ordered 2.5 mg PO BID HYDROmorphone Med 02/28/17 16:07 Ordered 4 mg PO Q6H PRN Lenalidomide [Revlimid] Med 02/28/17 16:15 Ordered 10 mg PO ASDIRECTED Levothyroxine Med 03/01/17 09:00 Ordered 125 mcg PO DAILY Metoprolol Succinate [Toprol XL] Med 03/01/17 09:00 Ordered 50 mg PO DAILY Ondansetron [Zofran] Med 02/28/17 16:24 Ordered 4 mg IVPUSH Q8H PRN Pantoprazole [ProTONIX] Med 03/01/17 09:00 Ordered 40 mg PO DAILY Polyethylene Glycol 3350 [MiraLAX] Med 02/28/17 16:07 Ordered DOSE gm PO DAILY PRN Potassium Chloride [Potassium Chloride] Med 03/01/17 09:00 Ordered 10 meq PO DAILY Rivaroxaban Med 03/01/17 09:00 Ordered 15 mg PO DAILY Simvastatin [Zocor] Med 02/28/17 21:00 Ordered 10 mg PO BEDTIME fentaNYL [Fentanyl] Med 02/28/17 16:15 Ordered 50 mcg TOP Q72H oxyCODONE ER [OxyCONTIN] Med 02/28/17 21:00 Ordered 20 mg PO Q12HR Code Status [Resuscitation Status] Routine Resus Stat 02/28/17 16:05 Ordered Medication Orders Acetaminophen (Tylenol) 1,000 mg PO BID PRN PRN Reason: Pain Albuterol (Proventil Hfa) gm INH Q8H PRN PRN Reason: Shortness of Breath Allopurinol (Zyloprim) 200 mg PO DAILY [facility] Dexamethasone (Dexamethasone) 20 mg PO WEEKLY [facility] Dronabinol (Marinol) 2.5 mg PO BID [facility] Duloxetine HCl (Cymbalta) 20 mg PO BID [facility] Sodium Chloride (Normal Saline) 1,000 mls @ 999 mls/hr IV ASDIRECTED [facility] Last Admin: 02/28/17 15:58 Dose: 150 mls/hr Infusion: 02/28/17 15:58 Dose: 150 mls/hr Admin: 02/28/17 12:23 Dose: 150 mls/hr Sodium Chloride (Normal Saline) 1,000 mls @ 999 mls/hr IV ONETIME [facility] Last Admin: 02/28/17 14:23 Dose: 999 mls/hr Levothyroxine Sodium (Levothyroxine) 125 mcg PO DAILY [facility] Metoprolol Succinate (Toprol Xl) 50 mg PO DAILY [facility] Non-Formulary Medication (Fentanyl [Fentanyl]) 50 mcg TOP Q72H [facility] Non-Formulary Medication (Hydromorphone) 4 mg PO Q6H PRN PRN Reason: Pain (severe 7-10) Non-Formulary Medication (Lenalidomide [Revlimid]) 10 mg PO ASDIRECTED [facility] Non-Formulary Medication (Oxycodone Er [Oxycontin]) 20 mg PO Q12HR [facility] Non-Formulary Medication (Potassium Chloride [Potassium Chloride]) 10 meq PO DAILY [facility] Non-Formulary Medication (Rivaroxaban) 15 mg PO DAILY [facility] Ondansetron HCl (Zofran) 4 mg IVPUSH Q8H PRN PRN Reason: Nausea/Vomiting Pantoprazole Sodium (Protonix) 40 mg PO DAILY [facility] Polyethylene Glycol (Miralax) gm PO DAILY PRN PRN Reason: Constipation Simvastatin (Zocor) 10 mg PO BEDTIME [facility] Sodium Chloride (Saline Flush) 10 ml FLUSH ASDIRECTED PRN PRN Reason: Keep Vein Open Last Admin: 02/28/17 12:23 Dose: 10 ml Assessment/Plan Comment:: Impression: Mild confusion with decrease oral intake Acute on chronic renal failure Recent completion of CTX for MM Chronic A fib on Xarelto CAD HTN HLD History of PPM Diabetes Mellitus type 2 Hypothyroidism Plan: IVF Clear Liquids, ADA Correct electrolytes Appetite simulant Home meds Daily labs SW/PT/OT DVT/GI prophylaxis
[2017-02-28] MEDS ORDERED: 50% Dextrose in Water 50 ML Syringe IVPUSH PRN (16:50)
[2017-02-28] MEDS ORDERED: Megestrol Susp 40 MG/ML 10 ML UD Cup PO ONE (17:35)
[2017-02-28] MEDS: Dronabinol 2.5 MG Cap PO SCH (17:37)
[2017-02-28] MEDS: DULOXETINE 20 MG PO SCH (20:13)
[2017-02-28] MEDS: OXYCODONE 20 MG PO SCH (20:13)
[2017-02-28] MEDS: Simvastatin 10 MG Tab **OWN MED PO SCH (20:13)
[2017-03-01] MEDS: Sodium Chloride 0.9% 1,000 ML IV SCH ×4 (06:02→20:18)
[2017-03-01] MEDS: Levothyroxine 125 MCG Tab **OWN MED PO SCH (06:02)
[2017-03-01] MEDS: Insulin Aspart 100 Units/ML 3 ML Pen SUBCUT SCH ×2 (07:11→17:22)
[2017-03-01] MEDS ORDERED: RIVAROXABAN 15 MG PO SCH (09:00)
--- NOTE | 2017-03-01 09:38 | PCM.PN ---
- General Info Date of Service: 03/01/17 Functional Status: Reports: Tolerating Diet, Ambulating, Urinating - Review of Systems General: Reports: No Symptoms HEENT: Reports: No Symptoms Pulmonary: Reports: No Symptoms Cardiovascular: Reports: No Symptoms Gastrointestinal: Reports: No Symptoms Genitourinary: Reports: No Symptoms Musculoskeletal: Reports: No Symptoms Skin: Reports: No Symptoms Neurological: Reports: No Symptoms Psychiatric: Reports: No Symptoms - Patient Data Vitals - Most Recent: Last Vital Signs Temp 36.4 C 03/01/17 06:08 Pulse 66 03/01/17 06:08 Resp 18 02/28/17 20:25 BP 130/77 03/01/17 06:08 Pulse Ox 97 03/01/17 06:08 Weight - Most Recent: 93.168 kg I&O - Last 24 Hours: Intake & Output 02/28/17 03/01/17 03/01/17 22:59 06:59 14:59 Intake Total 360 2266 Output Total 450 Balance 360 1816 Lab Results Last 24 Hours: Laboratory Results - last 24 hr 02/28/17 02/28/17 03/01/17 Range/Units 18:12 18:30 05:45 WBC 6.94 (4.23-9.07) K/mm3 RBC 2.88 L (4.63-6.08) M/mm3 Hgb 8.8 L (13.7-17.5) gm/L Hct 27.8 L (40.1-51.0) % MCV 96.5 H (79.0-92.2) fl MCH 30.6 (25.7-32.2) pg MCHC 31.7 L (32.2-35.5) g/dl RDW Std Deviation 51.6 H (35.1-43.9) fL Plt Count 115 L (163-337) K/mm3 MPV 12.3 (9.4-12.3) fl Neut % (Auto) 80.5 H (34.0-67.9) % Lymph % (Auto) 12.8 L (21.8-53.1) % [place] % (Auto) 6.2 (5.3-12.2) % Eos % (Auto) 0.1 L (0.8-7.0) Baso % (Auto) 0.0 L (0.1-1.2) % Neut # (Auto) 5.58 H (1.78-5.38) K/mm3 Lymph # (Auto) 0.89 L (1.32-3.57) K/mm3 [place] # (Auto) 0.43 (0.30-0.82) K/mm3 Eos # (Auto) 0.01 L (0.04-0.54) K/mm3 Baso # (Auto) 0.00 L (0.01-0.08) K/mm3 Sodium (136-145) mEq/L Potassium (3.5-5.1) mEq/L Chloride (98-107) mEq/L Carbon Dioxide (21-32) mEq/L Anion Gap (5-15) BUN (7-18) mg/dL Creatinine (0.7-1.3) mg/dL Est Cr Clr Drug Dosing mL/min Estimated GFR (MDRD) (>60) mL/min BUN/Creatinine Ratio (14-18) Glucose (83-115) mg/dL POC Glucose 158 H (83-110) mg/dL Calcium (8.5-10.1) mg/dL C-Reactive Protein (<1.0) mg/dL Urine Color Yellow (Yellow) Urine Appearance Clear (Clear) Urine pH 7.0 (5.0-8.0) Ur Specific [place] 1.020 (1.005-1.030) Urine Protein 2+ H (Negative) Urine Glucose (UA) 1+ H (Negative) Urine Ketones Negative (Negative) Urine Occult Blood 1+ H (Negative) Urine Nitrite Negative (Negative) Urine Bilirubin Negative (Negative) Urine Urobilinogen 0.2 (0.2-1.0) Ur Leukocyte Esterase Negative (Negative) Urine RBC 0-5 (0-5) /hpf Urine WBC 0-5 (0-5) /hpf Ur Epithelial Cells 0-5 (0-5) /hpf Urine Bacteria Occasional (FEW) /hpf Urine Mucus Not seen (FEW) /hpf 03/01/17 03/01/17 Range/Units 05:45 06:54 WBC (4.23-9.07) K/mm3 RBC (4.63-6.08) M/mm3 Hgb (13.7-17.5) gm/L Hct (40.1-51.0) % MCV (79.0-92.2) fl MCH (25.7-32.2) pg MCHC (32.2-35.5) g/dl RDW Std Deviation (35.1-43.9) fL Plt Count (163-337) K/mm3 MPV (9.4-12.3) fl Neut % (Auto) (34.0-67.9) % Lymph % (Auto) (21.8-53.1) % [place] % (Auto) (5.3-12.2) % Eos % (Auto) (0.8-7.0) Baso % (Auto) (0.1-1.2) % Neut # (Auto) (1.78-5.38) K/mm3 Lymph # (Auto) (1.32-3.57) K/mm3 [place] # (Auto) (0.30-0.82) K/mm3 Eos # (Auto) (0.04-0.54) K/mm3 Baso # (Auto) (0.01-0.08) K/mm3 Sodium 141 (136-145) mEq/L Potassium 3.6 (3.5-5.1) mEq/L Chloride 107 (98-107) mEq/L Carbon Dioxide 22 (21-32) mEq/L Anion Gap 15.6 H (5-15) BUN 37 H (7-18) mg/dL Creatinine 3.2 H (0.7-1.3) mg/dL Est Cr Clr Drug Dosing 20.24 mL/min Estimated GFR (MDRD) 19 (>60) mL/min BUN/Creatinine Ratio 11.6 L (14-18) Glucose 112 (83-115) mg/dL POC Glucose 113 H (83-110) mg/dL Calcium 10.2 H (8.5-10.1) mg/dL C-Reactive Protein 3.0 H* (<1.0) mg/dL Urine Color (Yellow) Urine Appearance (Clear) Urine pH (5.0-8.0) Ur Specific [place] (1.005-1.030) Urine Protein (Negative) Urine Glucose (UA) (Negative) Urine Ketones (Negative) Urine Occult Blood (Negative) Urine Nitrite (Negative) Urine Bilirubin (Negative) Urine Urobilinogen (0.2-1.0) Ur Leukocyte Esterase (Negative) Urine RBC (0-5) /hpf Urine WBC (0-5) /hpf Ur Epithelial Cells (0-5) /hpf Urine Bacteria (FEW) /hpf Urine Mucus (FEW) /hpf [place] Results Last 24 Hours: Microbiology 02/28/17 17:45 Influenza Type A Antigen Screen - Final Nasal, Left NEGATIVE INFLUENZA A VIRUS AG Influenza Type B Antigen Screen - Final NEGATIVE INFLUENZA B VIRUS AG Med Orders - Current: Current Medications Albuterol (Proventil Hfa) 0 gm INH Q8H PRN PRN Reason: Shortness of Breath Allopurinol (Zyloprim) 200 mg PO DAILY [facility] Dexamethasone (Dexamethasone) 20 mg PO Mo [facility] Dextrose/Water (Dextrose 50% In Water) 50 ml IVPUSH ASDIRECTED PRN PRN Reason: Hypoglycemia Dronabinol (Marinol) 2.5 mg PO BIDAC [facility] Last Admin: 02/28/17 17:37 Dose: Not Given Duloxetine HCl (Cymbalta) 20 mg PO BID [facility] Last Admin: 02/28/17 20:13 Dose: 20 mg Fentanyl (Duragesic) 50 mcg TRDERM Q72H [facility] Sodium Chloride (Normal Saline) 1,000 mls @ 150 mls/hr IV ASDIRECTED [facility] Last Admin: 03/01/17 06:05 Dose: 150 mls/hr Insulin Aspart (Novolog) 0 unit SUBCUT BIDAC [facility] PRN Reason: Protocol Last Admin: 03/01/17 07:11 Dose: Not Given Levothyroxine Sodium (Levothyroxine) 125 mcg PO ACBRK [facility] Last Admin: 03/01/17 06:02 Dose: 125 mcg Metoprolol Succinate (Toprol Xl) 50 mg PO DAILY [facility] Miscellaneous Information (Remove Patch) 0 ea TRDERM Q72H [facility] Ondansetron HCl (Zofran) 4 mg IVPUSH Q8H PRN PRN Reason: Nausea/Vomiting Oxycodone HCl (Oxycontin) 20 mg PO Q12HR [facility] Last Admin: 02/28/17 20:13 Dose: 20 mg Pantoprazole Sodium (Protonix) 40 mg PO DAILY@0700 [facility] Acetaminophen ( Tylenol) 500 Mg Tablets Own Med 0 each PO BID PRN PRN Reason: Pain Lenalidomide ( Revlimid) 10 Mg Cap Own Med 0 each PO SuMoWeFr@0900 [facility] Potassium Chloride 10 Meq Capsul Own Med 0 each PO DAILY [facility] Hydromorphone ( Dilaudid) 4 Mg Tab * *Own Med 0 each PO Q6H PRN PRN Reason: Pain (severe 7-10) Rivaroxaban (Xarelto ) 15 Mg Tab Own Med 0 each PO DAILY [facility] Polyethylene Glycol (Miralax) 17 gm PO DAILY PRN PRN Reason: Constipation Simvastatin (Zocor) 10 mg PO BEDTIME [facility] Last Admin: 02/28/17 20:13 Dose: 10 mg Sodium Chloride (Saline Flush) 10 ml FLUSH ASDIRECTED PRN PRN Reason: Keep Vein Open Last Admin: 02/28/17 12:23 Dose: 10 ml Discontinued Medications Sodium Chloride (Normal Saline) 1,000 mls @ 999 mls/hr IV ASDIRECTED [facility] Last Admin: 02/28/17 15:58 Dose: 150 mls/hr Sodium Chloride (Normal Saline) 1,000 mls @ 999 mls/hr IV ONETIME [facility] Last Infusion: 02/28/17 15:24 Dose: Infused Megestrol Acetate (Megace 40 Mg/Ml Susp) 400 mg PO ONETIME ONE Stop: 02/28/17 17:36 Last Admin: 02/28/17 18:13 Dose: 400 mg Hydromorphone ( Dilaudid) 4 Mg Tab * *Own Med 0 mg PO Q6H PRN PRN Reason: Pain (severe 7-10) Rivaroxaban (Xarelto ) 15 Mg Tab Own Med 0 mg PO DAILY [facility] - Exam Quality Assessment: DVT Prophylaxis General: Alert, Oriented, Cooperative, No Acute Distress HEENT: Pupils Equal, Pupils Reactive, EOMI Neck: Supple, Trachea Midline, No JVD Lungs: Normal Respiratory Effort Cardiovascular: Regular Rate GI/Abdominal Exam: Normal Bowel Sounds, Soft, No Organomegaly (Male) Exam: Deferred Back Exam: Normal Inspection Extremities: Normal Inspection, Normal Range of Motion, Non-Tender Skin: Warm Neurological: No New Focal Deficit, Normal Gait, Normal Speech Psy/Mental Status: Alert, Normal Affect, Normal Mood - Problem List & Annotations (1) A-fib SNOMED Code(s): 14009128 Code(s): I48.91 - UNSPECIFIED ATRIAL FIBRILLATION Status: Acute Current Visit: Yes (2) CAD (coronary artery disease) SNOMED Code(s): 37763244 Code(s): I25.10 - ATHSCL HEART DISEASE OF [place] CORONARY ARTERY W/O ANG PCTRS Status: Acute Current Visit: Yes (3) Hyperlipidemia SNOMED Code(s): 08892965 Code(s): E78.5 - HYPERLIPIDEMIA, UNSPECIFIED Status: Acute Current Visit : Yes (4) Chronic kidney disease SNOMED Code(s): 549314567 Code(s): N18.9 - CHRONIC KIDNEY DISEASE, UNSPECIFIED Status: Acute Current Visit: Yes (5) Acute renal failure SNOMED Code(s): 43504664 Code(s): N17.9 - ACUTE KIDNEY FAILURE, UNSPECIFIED Status: Acute Current Visit: Yes (6) Hypothyroidism SNOMED Code(s): 56092890 Code(s): E03.9 - HYPOTHYROIDISM, UNSPECIFIED Status: Acute Current Visit : Yes (7) GERD (gastroesophageal reflux disease) SNOMED Code(s): 026883807 Code(s): K21.9 - GASTRO-ESOPHAGEAL REFLUX DISEASE WITHOUT ESOPHAGITIS Status: Acute Current Visit: Yes (8) Multiple myeloma SNOMED Code(s): 972747391 Code(s): C90.00 - MULTIPLE MYELOMA NOT HAVING ACHIEVED REMISSION Status: Acute Current Visit: Yes Qualifiers: Multiple myeloma remission status: unspecified Qualified Code(s): C90.00 - Multiple myeloma not having achieved remission (9) Renal insufficiency SNOMED Code(s): 850313464 Code(s): N28.9 - DISORDER OF KIDNEY AND URETER, UNSPECIFIED Status: Acute Current Visit: Yes (10) Constipation SNOMED Code(s): 51955439 Code(s): K59.00 - CONSTIPATION, UNSPECIFIED Status: Acute Current Visit: No Onset Date: 06/17/14 - Problem List Review Problem List Initiated/Reviewed/Updated: Yes - My Orders Last 24 Hours: My Active Orders 02/28/17 15:33 Patient Status [ADT] Routine 02/28/17 16:05 Code Status [Resuscitation Status] Routine 02/28/17 16:07 Albuterol [Proventil HFA] 0 gm INH Q8H PRN Patient's Own Medication [Ptom] 0 each PO BID PRN Polyethylene Glycol 3350 [MiraLAX] 17 gm PO DAILY PRN 02/28/17 16:24 Ondansetron [Zofran] 4 mg IVPUSH Q8H PRN 02/28/17 16:49 Accu Check [Blood Glucose Check, Bedside] [RC] BIDAC 02/28/17 16:50 Dextrose 50% in Water 50 ml IVPUSH ASDIRECTED PRN 02/28/17 17:15 Dronabinol [Marinol] 2.5 mg PO BIDAC 02/28/17 18:09 Consult to [employer] [CONS] Routine 02/28/17 19:59 Sodium Chloride 0.9% [Normal Saline] 1,000 ml IV ASDIRECTED 02/28/17 21:00 DULoxetine [Cymbalta] 20 mg PO BID Simvastatin [Zocor] 10 mg PO BEDTIME oxyCODONE ER [OxyCONTIN] 20 mg PO Q12HR 03/01/17 05:45 CALCIUM, IONIZED [REF] DAILY 03/01/17 06:00 Insulin Aspart [NovoLOG] See Protocol SUBCUT BIDAC Levothyroxine 125 mcg PO ACBRK 03/01/17 07:00 Pantoprazole [ProTONIX] 40 mg PO DAILY@0700 03/01/17 09:00 Consult to Occupational Therapy [OT Evaluation and Treatment] [CONS] Routine Consult to Physical Therapy [PT Evaluation and Treatment] [CONS] Routine Allopurinol [Zyloprim] 200 mg PO DAILY Metoprolol Succinate [Toprol XL] 50 mg PO DAILY Patient's Own Medication [Ptom] 0 each PO DAILY 03/01/17 09:09 Patient's Own Medication [Ptom] 0 each PO Q6H PRN 03/01/17 09:12 Patient's Own Medication [Ptom] 0 each PO DAILY 03/02/17 05:00 BMP [BASIC METABOLIC PANEL,BMP] [CHEM] DAILY CALCIUM, IONIZED [REF] DAILY CBC WITH AUTO DIFF [HEME] DAILY CRP [C-REACTIVE PROTEIN] [CHEM] DAILY 03/02/17 09:00 Patient's Own Medication [Ptom] 0 each PO SuMoWeFr@0900 Remove Patch 0 ea TRDERM Q72H fentaNYL [Duragesic] 50 mcg TRDERM Q72H 03/03/17 05:00 BMP [BASIC METABOLIC PANEL,BMP] [CHEM] DAILY CALCIUM, IONIZED [REF] DAILY CBC WITH AUTO DIFF [HEME] DAILY CRP [C-REACTIVE PROTEIN] [CHEM] DAILY 03/07/17 09:00 Dexamethasone 20 mg PO Mo - Plan Plan:: Impression: Mild confusion with decrease oral intake Acute on chronic renal failure Recent completion of CTX for MM Chronic A fib on Xarelto CAD HTN HLD History of PPM Diabetes Mellitus type 2 Hypothyroidism Plan: IVF Clear Liquids, ADA Correct electrolytes Appetite simulant Home meds Daily labs SW/PT/OT DVT/GI prophylaxis
[2017-03-01] MEDS: DULOXETINE 20 MG PO SCH ×2 (10:14→20:14)
[2017-03-01] MEDS: OXYCODONE 20 MG PO SCH ×2 (10:14→20:14)
[2017-03-01] MEDS: POTASSIUM CHLORIDE 10 MEQ PO SCH (10:14)
[2017-03-01] MEDS: Metoprolol Succinate 50 MG Tab.ER **OWN MED PO SCH (10:14)
[2017-03-01] MEDS: Allopurinol 100 MG Tab **OWN MED PO SCH (10:15)
[2017-03-01] MEDS: Dronabinol 2.5 MG Cap PO SCH ×2 (10:15→16:17)
[2017-03-01] MEDS: Pantoprazole 40 MG Tab.CR **OWN MED PO SCH (10:21)
[2017-03-01] MEDS: ACETAMINOPHEN 500 MG PO PRN (10:24)
[2017-03-01] MEDS: HYDROMORPHONE 4 MG PO PRN (10:26)
[2017-03-01] MEDS ORDERED: Bumetanide 1 MG/4 ML MDV IVPUSH ONE (16:00)
[2017-03-01] MEDS: Simvastatin 10 MG Tab **OWN MED PO SCH (20:15)
[2017-03-02] MEDS: Insulin Aspart 100 Units/ML 3 ML Pen SUBCUT SCH ×2 (06:41→20:36)
[2017-03-02] MEDS: Levothyroxine 125 MCG Tab **OWN MED PO SCH (06:41)
[2017-03-02] MEDS: Dronabinol 2.5 MG Cap PO SCH ×2 (06:42→16:49)
[2017-03-02] MEDS ORDERED: Furosemide 40 MG/4 ML VIAL IVPUSH ONE (07:00)
[2017-03-02] MEDS ORDERED: Potassium Chloride 10% 20 MEQ/15 ML Soln 30 ML UD Cup PO ONE ×2 (08:00→12:00)
[2017-03-02] MEDS: OXYCODONE 20 MG PO SCH ×2 (08:18→22:11)
[2017-03-02] MEDS: DULOXETINE 20 MG PO SCH ×2 (08:18→22:11)
[2017-03-02] MEDS: RIVAROXABAN 15 MG PO SCH (08:20)
[2017-03-02] MEDS: POTASSIUM CHLORIDE 10 MEQ PO SCH (08:20)
[2017-03-02] MEDS: Allopurinol 100 MG Tab **OWN MED PO SCH (08:22)
[2017-03-02] MEDS: Pantoprazole 40 MG Tab.CR **OWN MED PO SCH (08:22)
[2017-03-02] MEDS: HYDROMORPHONE 4 MG PO PRN (08:24)
[2017-03-02] MEDS: ACETAMINOPHEN 500 MG PO PRN (08:24)
[2017-03-02] MEDS: Metoprolol Succinate 50 MG Tab.ER **OWN MED PO SCH (08:25)
[2017-03-02] MEDS ORDERED: LENALIDOMIDE 10 MG PO SCH (09:00)
[2017-03-02] MEDS ORDERED: FENTANYL 50 MCG/HR TRDERM SCH (09:00)
[2017-03-02] MEDS ORDERED: Furosemide 20 MG/2 ML VIAL IVPUSH ONE (10:18)
[2017-03-02] MEDS ORDERED: Megestrol Susp 40 MG/ML 10 ML UD Cup PO ONE (16:50)
--- NOTE | 2017-03-02 17:31 | PCM.PN ---
- General Info Date of Service: 03/02/17 Functional Status: Reports: Ambulating, Urinating - Review of Systems General: Reports: No Symptoms HEENT: Reports: No Symptoms Pulmonary: Reports: No Symptoms Cardiovascular: Reports: No Symptoms Gastrointestinal: Reports: No Symptoms Genitourinary: Reports: No Symptoms Skin: Reports: No Symptoms Neurological: Reports: No Symptoms Psychiatric: Reports: No Symptoms - Patient Data Vitals - Most Recent: Last Vital Signs Temp 36.2 C 03/02/17 13:10 Pulse 70 03/02/17 13:10 Resp 18 03/02/17 13:10 BP 121/74 03/02/17 13:10 Pulse Ox 95 03/02/17 13:10 Weight - Most Recent: 93.621 kg I&O - Last 24 Hours: Intake & Output 03/02/17 03/02/17 03/02/17 06:59 14:59 22:59 Intake Total 1198 210 0 Balance 1198 210 0 Lab Results Last 24 Hours: Laboratory Results - last 24 hr 03/02/17 03/02/17 03/02/17 Range/Units 05:48 05:48 05:48 WBC 4.17 L (4.23-9.07) K/mm3 RBC 2.86 L (4.63-6.08) M/mm3 Hgb 8.8 L (13.7-17.5) gm/L Hct 27.4 L (40.1-51.0) % MCV 95.8 H (79.0-92.2) fl MCH 30.8 (25.7-32.2) pg MCHC 32.1 L (32.2-35.5) g/dl RDW Std Deviation 51.7 H (35.1-43.9) fL Plt Count 112 L (163-337) K/mm3 MPV 12.3 (9.4-12.3) fl Neut % (Auto) 69.7 H (34.0-67.9) % Lymph % (Auto) 17.3 L (21.8-53.1) % [place] % (Auto) 9.1 (5.3-12.2) % Eos % (Auto) 3.4 (0.8-7.0) Baso % (Auto) 0.0 L (0.1-1.2) % Neut # (Auto) 2.91 (1.78-5.38) K/mm3 Lymph # (Auto) 0.72 L (1.32-3.57) K/mm3 [place] # (Auto) 0.38 (0.30-0.82) K/mm3 Eos # (Auto) 0.14 (0.04-0.54) K/mm3 Baso # (Auto) 0.00 L (0.01-0.08) K/mm3 Sodium 141 (136-145) mEq/L Potassium 2.5 L (3.5-5.1) mEq/L Chloride 108 H (98-107) mEq/L Carbon Dioxide 23 (21-32) mEq/L Anion Gap 12.5 (5-15) BUN 34 H (7-18) mg/dL Creatinine 3.1 H (0.7-1.3) mg/dL Est Cr Clr Drug Dosing 20.89 mL/min Estimated GFR (MDRD) 20 (>60) mL/min BUN/Creatinine Ratio 11.0 L (14-18) Glucose 81 L (83-115) mg/dL POC Glucose (83-110) mg/dL Calcium 9.9 (8.5-10.1) mg/dL Magnesium 1.7 L (1.8-2.4) mg/dl C-Reactive Protein 1.6 H* (<1.0) mg/dL NT-Pro-B Natriuret Pep 42495 H (0-450) pg/mL 03/02/17 03/02/17 03/02/17 Range/Units 06:23 11:16 13:00 WBC (4.23-9.07) K/mm3 RBC (4.63-6.08) M/mm3 Hgb (13.7-17.5) gm/L Hct (40.1-51.0) % MCV (79.0-92.2) fl MCH (25.7-32.2) pg MCHC (32.2-35.5) g/dl RDW Std Deviation (35.1-43.9) fL Plt Count (163-337) K/mm3 MPV (9.4-12.3) fl Neut % (Auto) (34.0-67.9) % Lymph % (Auto) (21.8-53.1) % [place] % (Auto) (5.3-12.2) % Eos % (Auto) (0.8-7.0) Baso % (Auto) (0.1-1.2) % Neut # (Auto) (1.78-5.38) K/mm3 Lymph # (Auto) (1.32-3.57) K/mm3 [place] # (Auto) (0.30-0.82) K/mm3 Eos # (Auto) (0.04-0.54) K/mm3 Baso # (Auto) (0.01-0.08) K/mm3 Sodium (136-145) mEq/L Potassium 3.4 L (3.5-5.1) mEq/L Chloride (98-107) mEq/L Carbon Dioxide (21-32) mEq/L Anion Gap (5-15) BUN (7-18) mg/dL Creatinine (0.7-1.3) mg/dL Est Cr Clr Drug Dosing mL/min Estimated GFR (MDRD) (>60) mL/min BUN/Creatinine Ratio (14-18) Glucose (83-115) mg/dL POC Glucose 86 85 (83-110) mg/dL Calcium (8.5-10.1) mg/dL Magnesium (1.8-2.4) mg/dl C-Reactive Protein (<1.0) mg/dL NT-Pro-B Natriuret Pep (0-450) pg/mL 03/02/17 Range/Units 17:15 WBC (4.23-9.07) K/mm3 RBC (4.63-6.08) M/mm3 Hgb (13.7-17.5) gm/L Hct (40.1-51.0) % MCV (79.0-92.2) fl MCH (25.7-32.2) pg MCHC (32.2-35.5) g/dl RDW Std Deviation (35.1-43.9) fL Plt Count (163-337) K/mm3 MPV (9.4-12.3) fl Neut % (Auto) (34.0-67.9) % Lymph % (Auto) (21.8-53.1) % [place] % (Auto) (5.3-12.2) % Eos % (Auto) (0.8-7.0) Baso % (Auto) (0.1-1.2) % Neut # (Auto) (1.78-5.38) K/mm3 Lymph # (Auto) (1.32-3.57) K/mm3 [place] # (Auto) (0.30-0.82) K/mm3 Eos # (Auto) (0.04-0.54) K/mm3 Baso # (Auto) (0.01-0.08) K/mm3 Sodium (136-145) mEq/L Potassium (3.5-5.1) mEq/L Chloride (98-107) mEq/L Carbon Dioxide (21-32) mEq/L Anion Gap (5-15) BUN (7-18) mg/dL Creatinine (0.7-1.3) mg/dL Est Cr Clr Drug Dosing mL/min Estimated GFR (MDRD) (>60) mL/min BUN/Creatinine Ratio (14-18) Glucose (83-115) mg/dL POC Glucose 106 (83-110) mg/dL Calcium (8.5-10.1) mg/dL Magnesium (1.8-2.4) mg/dl C-Reactive Protein (<1.0) mg/dL NT-Pro-B Natriuret Pep (0-450) pg/mL Med Orders - Current: Current Medications Albuterol (Proventil Hfa) 0 gm INH Q8H PRN PRN Reason: Shortness of Breath Allopurinol (Zyloprim) 200 mg PO DAILY [facility] Last Admin: 03/02/17 08:22 Dose: 200 mg Bumetanide (Bumex) 1 mg IVPUSH ONETIME ONE Stop: 03/03/17 07:01 Dexamethasone (Dexamethasone) 20 mg PO [facility] Dextrose/Water (Dextrose 50% In Water) 50 ml IVPUSH ASDIRECTED PRN PRN Reason: Hypoglycemia Dronabinol (Marinol) 2.5 mg PO BIDAC [facility] Last Admin: 03/02/17 16:49 Dose: Not Given Duloxetine HCl (Cymbalta) 20 mg PO BID [facility] Last Admin: 03/02/17 08:18 Dose: 20 mg Fentanyl (Duragesic) 50 mcg TRDERM Q72H [facility] Last Admin: 03/02/17 08:29 Dose: 50 mcg Lactated Ringer's (Ringers, Lactated) 1,000 mls @ 75 mls/hr IV ASDIRECTED [facility] Last Admin: 03/02/17 17:09 Dose: 75 mls/hr Insulin Aspart (Novolog) 0 unit SUBCUT BIDAC [facility] PRN Reason: Protocol Last Admin: 03/02/17 06:41 Dose: Not Given Levothyroxine Sodium (Levothyroxine) 125 mcg PO ACBRK [facility] Last Admin: 03/02/17 06:41 Dose: 125 mcg Metoprolol Succinate (Toprol Xl) 50 mg PO DAILY [facility] Last Admin: 03/02/17 08:25 Dose: 50 mg Miscellaneous Information (Remove Patch) 0 ea TRDERM Q72H [facility] Last Admin: 03/02/17 08:29 Dose: 1 ea Ondansetron HCl (Zofran) 4 mg IVPUSH Q8H PRN PRN Reason: Nausea/Vomiting Oxycodone HCl (Oxycontin) 20 mg PO Q12HR [facility] Last Admin: 03/02/17 08:18 Dose: 20 mg Pantoprazole Sodium (Protonix) 40 mg PO DAILY@0700 [facility] Last Admin: 03/02/17 08:22 Dose: 40 mg Acetaminophen ( Tylenol) 500 Mg Tablets Own Med 0 each PO BID PRN PRN Reason: Pain Last Admin: 03/02/17 08:24 Dose: 1 each Lenalidomide ( Revlimid) 10 Mg Cap Own Med 0 each PO SuMoWeFr@0900 [facility] Last Admin: 03/02/17 08:19 Dose: 1 each Potassium Chloride 10 Meq Capsul Own Med 0 each PO DAILY [facility] Last Admin: 03/02/17 08:20 Dose: 1 each Hydromorphone ( Dilaudid) 4 Mg Tab * *Own Med 0 each PO Q6H PRN PRN Reason: Pain (severe 7-10) Last Admin: 03/02/17 08:24 Dose: 1 each Rivaroxaban (Xarelto ) 15 Mg Tab Own Med 0 each PO DAILY [facility] Last Admin: 03/02/17 08:20 Dose: 1 each Polyethylene Glycol (Miralax) 17 gm PO DAILY PRN PRN Reason: Constipation Simvastatin (Zocor) 10 mg PO BEDTIME [facility] Last Admin: 03/01/17 20:15 Dose: 10 mg Sodium Chloride (Saline Flush) 10 ml FLUSH ASDIRECTED PRN PRN Reason: Keep Vein Open Last Admin: 02/28/17 12:23 Dose: 10 ml Discontinued Medications Bumetanide (Bumex) 1 mg IVPUSH ONETIME ONE Stop: 03/01/17 16:01 Last Admin: 03/02/17 17:07 Dose: Not Given Furosemide (Lasix) 20 mg IVPUSH DAILY ONE Stop: 03/02/17 07:01 Last Admin: 03/02/17 06:42 Dose: 20 mg Furosemide (Lasix) 20 mg IVPUSH NOW ONE Stop: 03/02/17 10:19 Last Admin: 03/02/17 11:02 Dose: 20 mg Sodium Chloride (Normal Saline) 1,000 mls @ 999 mls/hr IV ASDIRECTED [facility] Last Admin: 02/28/17 15:58 Dose: 150 mls/hr Sodium Chloride (Normal Saline) 1,000 mls @ 999 mls/hr IV ONETIME [facility] Last Infusion: 02/28/17 15:24 Dose: Infused Sodium Chloride (Normal Saline) 1,000 mls @ 75 mls/hr IV ASDIRECTED [facility] Last Admin: 03/01/17 20:18 Dose: 75 mls/hr Megestrol Acetate (Megace 40 Mg/Ml Susp) 400 mg PO ONETIME ONE Stop: 02/28/17 17:36 Last Admin: 02/28/17 18:13 Dose: 400 mg Megestrol Acetate (Megace 40 Mg/Ml Susp) 400 mg PO ONETIME ONE Stop: 03/02/17 16:51 Last Admin: 03/02/17 17:09 Dose: 400 mg Hydromorphone ( Dilaudid) 4 Mg Tab * *Own Med 0 mg PO Q6H PRN PRN Reason: Pain (severe 7-10) Rivaroxaban (Xarelto ) 15 Mg Tab Own Med 0 mg PO DAILY [facility] Last Admin: 03/01/17 16:17 Dose: 15 mg Potassium Chloride (Potassium Chloride) 40 meq PO ONETIME ONE Stop: 03/02/17 08:01 Last Admin: 03/02/17 08:17 Dose: 40 meq Potassium Chloride (Potassium Chloride) 40 meq PO ONETIME ONE Stop: 03/02/17 12:01 Last Admin: 03/02/17 11:02 Dose: 40 meq - Exam Quality Assessment: Supplemental Oxygen, DVT Prophylaxis General: Alert, Oriented, Cooperative, No Acute Distress HEENT: Pupils Equal, Pupils Reactive, EOMI Neck: Supple, Trachea Midline, No JVD Lungs: Clear to Auscultation, Normal Respiratory Effort Cardiovascular: Regular Rate, Regular Rhythm GI/Abdominal Exam: Normal Bowel Sounds, Soft, Non-Tender, No Organomegaly, No Distention (Male) Exam: Deferred Back Exam: Normal Inspection Extremities: Pedal Edema (trace) Skin: Warm Neurological: No New Focal Deficit Psy/Mental Status: Alert, Normal Affect, Normal Mood - Problem List & Annotations (1) A-fib SNOMED Code(s): 86221796 Code(s): I48.91 - UNSPECIFIED ATRIAL FIBRILLATION Status: Acute Current Visit: Yes (2) CAD (coronary artery disease) SNOMED Code(s): 98812838 Code(s): I25.10 - ATHSCL HEART DISEASE OF [place] CORONARY ARTERY W/O ANG PCTRS Status: Acute Current Visit: Yes (3) Hyperlipidemia SNOMED Code(s): 95470703 Code(s): E78.5 - HYPERLIPIDEMIA, UNSPECIFIED Status: Acute Current Visit : Yes (4) Chronic kidney disease SNOMED Code(s): 983608989 Code(s): N18.9 - CHRONIC KIDNEY DISEASE, UNSPECIFIED Status: Acute Current Visit: Yes (5) Acute renal failure SNOMED Code(s): 39010353 Code(s): N17.9 - ACUTE KIDNEY FAILURE, UNSPECIFIED Status: Acute Current Visit: Yes (6) Hypothyroidism SNOMED Code(s): 65351782 Code(s): E03.9 - HYPOTHYROIDISM, UNSPECIFIED Status: Acute Current Visit : Yes (7) GERD (gastroesophageal reflux disease) SNOMED Code(s): 484939887 Code(s): K21.9 - GASTRO-ESOPHAGEAL REFLUX DISEASE WITHOUT ESOPHAGITIS Status: Acute Current Visit: Yes (8) Multiple myeloma SNOMED Code(s): 665986056 Code(s): C90.00 - MULTIPLE MYELOMA NOT HAVING ACHIEVED REMISSION Status: Acute Current Visit: Yes Qualifiers: Multiple myeloma remission status: unspecified Qualified Code(s): C90.00 - Multiple myeloma not having achieved remission (9) Renal insufficiency SNOMED Code(s): 980366061 Code(s): N28.9 - DISORDER OF KIDNEY AND URETER, UNSPECIFIED Status: Acute Current Visit: Yes (10) Constipation SNOMED Code(s): 23597188 Code(s): K59.00 - CONSTIPATION, UNSPECIFIED Status: Acute Current Visit: No Onset Date: 06/17/14 - Problem List Review Problem List Initiated/Reviewed/Updated: Yes - My Orders Last 24 Hours: My Active Orders 03/02/17 05:48 CALCIUM, IONIZED [REF] DAILY 03/02/17 09:00 Patient's Own Medication [Ptom] 0 each PO SuMoWeFr@0900 Remove Patch 0 ea TRDERM Q72H fentaNYL [Duragesic] 50 mcg TRDERM Q72H 03/02/17 18:00 Lactated Ringers [Ringers, Lactated] 1,000 ml IV ASDIRECTED 03/03/17 05:00 BMP [BASIC METABOLIC PANEL,BMP] [CHEM] DAILY CALCIUM, IONIZED [REF] DAILY CBC WITH AUTO DIFF [HEME] DAILY CRP [C-REACTIVE PROTEIN] [CHEM] DAILY 03/03/17 07:00 Bumetanide [Bumex] 1 mg IVPUSH ONETIME ONE 03/07/17 09:00 Dexamethasone 20 mg PO Mo - Plan Plan:: Impression: Resolved AMS Acute on chronic renal failure, slowly improving. Recent completion of CTX for MM Chronic A fib on Xarelto CAD HTN HLD History of PPM Diabetes Mellitus type 2 Hypothyroidism Plan: IVF Correct electrolytes Appetite simulant Home meds Daily labs SW/PT/OT DVT/GI prophylaxis
[2017-03-02] MEDS ORDERED: Lactated Ringers 1,000 ML IV SCH (18:00)
[2017-03-02] MEDS: Simvastatin 10 MG Tab **OWN MED PO SCH (22:12)
[2017-03-03] MEDS: Levothyroxine 125 MCG Tab **OWN MED PO SCH (06:23)
[2017-03-03] MEDS: Insulin Aspart 100 Units/ML 3 ML Pen SUBCUT SCH ×2 (06:24→17:51)
[2017-03-03] MEDS: Pantoprazole 40 MG Tab.CR **OWN MED PO SCH (06:24)
[2017-03-03] MEDS ORDERED: Bumetanide 1 MG/4 ML MDV IVPUSH ONE (07:00)
[2017-03-03] MEDS ORDERED: Potassium Chloride 10% 20 MEQ/15 ML Soln 30 ML UD Cup PO ONE (09:39)
[2017-03-03] MEDS: DULOXETINE 20 MG PO SCH (10:40)
[2017-03-03] MEDS: POTASSIUM CHLORIDE 10 MEQ PO SCH (10:41)
[2017-03-03] MEDS: OXYCODONE 20 MG PO SCH (10:41)
[2017-03-03] MEDS: RIVAROXABAN 15 MG PO SCH (10:42)
[2017-03-03] MEDS: Metoprolol Succinate 50 MG Tab.ER **OWN MED PO SCH (10:43)
[2017-03-03] MEDS: Allopurinol 100 MG Tab **OWN MED PO SCH (10:46)
[2017-03-03] MEDS ORDERED: Magnesium Sulfate/Water 2 GM in Premix Bag 1 BAG IV ONE (10:48)
[2017-03-03] MEDS: Dronabinol 2.5 MG Cap PO SCH ×2 (10:56→17:51)
[2017-03-03 12:19] VITALS: BP 127/82
--- NOTE | 2017-03-03 13:26 | PCM.DCSUM1 ---
Discharge Summary - Hospital Course Free Text/Narrative:: 81 year old male with MM presented with dehydration, mild confusion. He has been actively getting treatment for multiple myeloma; he has had pancytopenia post therapy as expected. He has experienced loss of appetite and was overwhelmed feeling exhausted and weak. He was in acute on chronic renal failure. Labs were corrected, and he was aggressively hydrated, his Cr corrected very slowly. Marinol was added to improve appetite. He was discharged to home and is expected to keep his CTX appt as previously scheduled. At that visit, lab studies will be drawn. Primary DX Multipe Myeloma Dehydration Acute on chronic renal failure CKD III-IV A fib DM type 2 HTN HLD Hypothyroidism Diet Usual Disposition Home Follow up PCP/Oncology Needs nephrology appt eg Dr Morris Mon (changes/additions) Marinol 2.5 mg BID Potassium 10 mEq, 2 tabs daily Labs 03/07/17 CBC with diff, BMP - Discharge Data Discharge Date: 03/03/17 Discharge Disposition: Home, Self-Care 01 Condition: Good - Discharge Diagnosis/Problem(s) (1) A-fib SNOMED Code(s): 49145253 ICD Code: I48.91 - UNSPECIFIED ATRIAL FIBRILLATION Status: Acute Current Visit: Yes (2) CAD (coronary artery disease) SNOMED Code(s): 72201486 ICD Code: I25.10 - ATHSCL HEART DISEASE OF [place] CORONARY ARTERY W/O ANG PCTRS Status: Acute Current Visit: Yes (3) Hyperlipidemia SNOMED Code(s): 96586037 ICD Code: E78.5 - HYPERLIPIDEMIA, UNSPECIFIED Status: Acute Current Visit : Yes (4) Chronic kidney disease SNOMED Code(s): 765875338 ICD Code: N18.9 - CHRONIC KIDNEY DISEASE, UNSPECIFIED Status: Acute Current Visit: Yes (5) Acute renal failure SNOMED Code(s): 54653483 ICD Code: N17.9 - ACUTE KIDNEY FAILURE, UNSPECIFIED Status: Acute Current Visit: Yes (6) Hypothyroidism SNOMED Code(s): 19915368 ICD Code: E03.9 - HYPOTHYROIDISM, UNSPECIFIED Status: Acute Current Visit : Yes (7) GERD (gastroesophageal reflux disease) SNOMED Code(s): 652935002 ICD Code: K21.9 - GASTRO-ESOPHAGEAL REFLUX DISEASE WITHOUT ESOPHAGITIS Status: Acute Current Visit: Yes (8) Multiple myeloma SNOMED Code(s): 465854002 ICD Code: C90.00 - MULTIPLE MYELOMA NOT HAVING ACHIEVED REMISSION Status: Acute Current Visit: Yes Qualifiers: Multiple myeloma remission status: unspecified Qualified Code(s): C90.00 - Multiple myeloma not having achieved remission (9) Renal insufficiency SNOMED Code(s): 580438738 ICD Code: N28.9 - DISORDER OF KIDNEY AND URETER, UNSPECIFIED Status: Acute Current Visit: Yes (10) Constipation SNOMED Code(s): 62395236 ICD Code: K59.00 - CONSTIPATION, UNSPECIFIED Status: Acute Current Visit : No Onset Date: 06/17/14 - Patient Summary/Data Consults: Consultations 02/28/17 18:09 Consult to Animator [CONS] Routine 03/01/17 09:00 Consult to Occupational Therapy [OT Evaluation and Treatment] [CONS] Routine Consult to Physical Therapy [PT Evaluation and Treatment] [CONS] Routine - Patient Instructions Diet: Usual Diet as Tolerated, Drink 8-10+ Glasses/Day Activity: As Tolerated Driving: Do Not Drive Showering/Bathing: May Shower Notify Provider of: Fever, Nausea and/or Vomiting - Discharge Plan Prescriptions/Med Rec: Dronabinol [Marinol] 2.5 mg PO BIDAC #60 cap Potassium Chloride 10 meq PO DAILY #45 capsule.er Home Medications: Home Meds Levothyroxine Sodium [Synthroid] 125 mcg PO ACBREAKFAST 11/26/13 [History] Allopurinol [Zyloprim] 200 mg PO DAILY 06/17/14 [History] Metoprolol Succinate [Toprol XL] 50 mg PO DAILY 06/17/14 [History] Simvastatin [Zocor] 10 mg PO BEDTIME 06/17/14 [History] oxyCODONE ER [OxyCONTIN] 20 mg PO Q12HR 06/17/14 [History] Acetaminophen [Tylenol] 1,000 mg PO BID PRN 09/24/16 [History] Albuterol Sulfate [Proventil Hfa] 2 puff INH Q8H PRN 09/24/16 [History] Cholecalciferol (Vitamin D3) [Vitamin D] 1,000 unit PO DAILY 09/24/16 [History] DULoxetine [Cymbalta] 20 mg PO BID 09/24/16 [History] HYDROmorphone [Dilaudid] 4 mg PO Q6H PRN 09/24/16 [History] Pantoprazole Sodium [Protonix] 40 mg PO DAILY 09/24/16 [History] Polyethylene Glycol 3350 [MiraLAX] 1 tab PO DAILY PRN 09/24/16 [History] Rivaroxaban [Xarelto] 15 mg PO DAILY 09/24/16 [History] fentaNYL [Fentanyl] 50 mcg TOP Q72H 09/24/16 [History] Dexamethasone 20 mg PO MO 09/30/16 [History] Advair Inhaler. 1 puff INH BID 02/28/17 [History] Lenalidomide [Revlimid] 10 mg PO SUMOWEFR 02/28/17 [History] Dronabinol [Marinol] 2.5 mg PO BIDAC #60 cap 03/03/17 [Rx] Potassium Chloride 10 meq PO DAILY #45 capsule.er 03/03/17 [Rx] Patient Handouts: Acute Kidney Injury, Chronic Kidney Disease, [id number]-dk-[id number] Forms: ED Department Discharge Referrals: Lidia Lilly MD [Primary Care Provider] - 03/10/17 9:00 am (Please go in to clinic to have your labs drawn on Tuesday, March 08, 2017 as previously determined. Please keep appointment with Dr. Doyle on February.) - Discharge Summary/Plan Comment DC Time >30 min.: No - General Info Date of Service: 02/28/17 Functional Status: Reports: Tolerating Diet, Ambulating, Urinating - Review of Systems General: Reports: No Symptoms HEENT: Reports: No Symptoms Pulmonary: Reports: No Symptoms Cardiovascular: Reports: No Symptoms Gastrointestinal: Reports: No Symptoms Genitourinary: Reports: No Symptoms Musculoskeletal: Reports: No Symptoms Skin: Reports: No Symptoms Neurological: Reports: No Symptoms Psychiatric: Reports: No Symptoms - Patient Data Vitals - Most Recent: Last Vital Signs Temp 36.8 C 03/03/17 12:03 Pulse 70 03/03/17 12:03 Resp 20 03/03/17 12:03 BP 127/82 03/03/17 12:03 Pulse Ox 96 03/03/17 12:03 Weight - Most Recent: 91.127 kg I&O - Last 24 hours: Intake & Output 03/02/17 03/03/17 03/03/17 22:59 06:59 14:59 Intake Total 1457 808 300 Output Total 1200 Balance 257 808 300 Lab Results - Last 24 hrs: Laboratory Results - last 24 hr 03/02/17 03/02/17 03/02/17 Range/Units 13:00 17:15 21:40 WBC (4.23-9.07) K/mm3 RBC (4.63-6.08) M/mm3 Hgb (13.7-17.5) gm/L Hct (40.1-51.0) % MCV (79.0-92.2) fl MCH (25.7-32.2) pg MCHC (32.2-35.5) g/dl RDW Std Deviation (35.1-43.9) fL Plt Count (163-337) K/mm3 MPV (9.4-12.3) fl Neut % (Auto) (34.0-67.9) % Lymph % (Auto) (21.8-53.1) % [place] % (Auto) (5.3-12.2) % Eos % (Auto) (0.8-7.0) Baso % (Auto) (0.1-1.2) % Neut # (Auto) (1.78-5.38) K/mm3 Lymph # (Auto) (1.32-3.57) K/mm3 [place] # (Auto) (0.30-0.82) K/mm3 Eos # (Auto) (0.04-0.54) K/mm3 Baso # (Auto) (0.01-0.08) K/mm3 Sodium (136-145) mEq/L Potassium 3.4 L (3.5-5.1) mEq/L Chloride (98-107) mEq/L Carbon Dioxide (21-32) mEq/L Anion Gap (5-15) BUN (7-18) mg/dL Creatinine (0.7-1.3) mg/dL Est Cr Clr Drug Dosing mL/min Estimated GFR (MDRD) (>60) mL/min BUN/Creatinine Ratio (14-18) Glucose (83-115) mg/dL POC Glucose 106 115 H (83-110) mg/dL Calcium (8.5-10.1) mg/dL C-Reactive Protein (<1.0) mg/dL 03/03/17 03/03/17 03/03/17 Range/Units 04:50 04:50 06:22 WBC 3.56 L (4.23-9.07) K/mm3 RBC 2.85 L (4.63-6.08) M/mm3 Hgb 8.7 L (13.7-17.5) gm/L Hct 27.2 L (40.1-51.0) % MCV 95.4 H (79.0-92.2) fl MCH 30.5 (25.7-32.2) pg MCHC 32.0 L (32.2-35.5) g/dl RDW Std Deviation 52.4 H (35.1-43.9) fL Plt Count 111 L (163-337) K/mm3 MPV 11.6 (9.4-12.3) fl Neut % (Auto) 54.8 (34.0-67.9) % Lymph % (Auto) 23.6 (21.8-53.1) % [place] % (Auto) 11.5 (5.3-12.2) % Eos % (Auto) 9.8 H (0.8-7.0) Baso % (Auto) 0.3 (0.1-1.2) % Neut # (Auto) 1.95 (1.78-5.38) K/mm3 Lymph # (Auto) 0.84 L (1.32-3.57) K/mm3 [place] # (Auto) 0.41 (0.30-0.82) K/mm3 Eos # (Auto) 0.35 (0.04-0.54) K/mm3 Baso # (Auto) 0.01 (0.01-0.08) K/mm3 Sodium 144 (136-145) mEq/L Potassium 3.0 L (3.5-5.1) mEq/L Chloride 111 H (98-107) mEq/L Carbon Dioxide 21 (21-32) mEq/L Anion Gap 15.0 (5-15) BUN 34 H (7-18) mg/dL Creatinine 3.0 H (0.7-1.3) mg/dL Est Cr Clr Drug Dosing 21.59 mL/min Estimated GFR (MDRD) 20 (>60) mL/min BUN/Creatinine Ratio 11.3 L (14-18) Glucose 101 (83-115) mg/dL POC Glucose 93 (83-110) mg/dL Calcium 10.5 H (8.5-10.1) mg/dL C-Reactive Protein 2.6 H* (<1.0) mg/dL Med Orders - Current: Current Medications Albuterol (Proventil Hfa) 0 gm INH Q8H PRN PRN Reason: Shortness of Breath Allopurinol (Zyloprim) 200 mg PO DAILY [facility] Last Admin: 03/03/17 10:46 Dose: 200 mg Dexamethasone (Dexamethasone) 20 mg PO Mo [facility] Dextrose/Water (Dextrose 50% In Water) 50 ml IVPUSH ASDIRECTED PRN PRN Reason: Hypoglycemia Dronabinol (Marinol) 2.5 mg PO BIDAC [facility] Last Admin: 03/03/17 10:56 Dose: 2.5 mg Duloxetine HCl (Cymbalta) 20 mg PO BID [facility] Last Admin: 03/03/17 10:40 Dose: 20 mg Fentanyl (Duragesic) 50 mcg TRDERM Q72H [facility] Last Admin: 03/02/17 08:29 Dose: 50 mcg Insulin Aspart (Novolog) 0 unit SUBCUT BIDAC [facility] PRN Reason: Protocol Last Admin: 03/03/17 06:24 Dose: Not Given Levothyroxine Sodium (Levothyroxine) 125 mcg PO ACBRK [facility] Last Admin: 03/03/17 06:23 Dose: 125 mcg Metoprolol Succinate (Toprol Xl) 50 mg PO DAILY [facility] Last Admin: 03/03/17 10:43 Dose: 50 mg Miscellaneous Information (Remove Patch) 0 ea TRDERM Q72H [facility] Last Admin: 03/02/17 08:29 Dose: 1 ea Ondansetron HCl (Zofran) 4 mg IVPUSH Q8H PRN PRN Reason: Nausea/Vomiting Oxycodone HCl (Oxycontin) 20 mg PO Q12HR [facility] Last Admin: 03/03/17 10:41 Dose: 20 mg Pantoprazole Sodium (Protonix) 40 mg PO DAILY@0700 [facility] Last Admin: 03/03/17 06:24 Dose: 40 mg Acetaminophen ( Tylenol) 500 Mg Tablets Own Med 0 each PO BID PRN PRN Reason: Pain Last Admin: 03/02/17 08:24 Dose: 1 each Lenalidomide ( Revlimid) 10 Mg Cap Own Med 0 each PO SuMoWeFr@0900 [facility] Last Admin: 03/02/17 08:19 Dose: 1 each Potassium Chloride 10 Meq Capsul Own Med 0 each PO DAILY [facility] Last Admin: 03/03/17 10:41 Dose: 1 each Hydromorphone ( Dilaudid) 4 Mg Tab * *Own Med 0 each PO Q6H PRN PRN Reason: Pain (severe 7-10) Last Admin: 03/02/17 08:24 Dose: 1 each Rivaroxaban (Xarelto ) 15 Mg Tab Own Med 0 each PO DAILY [facility] Last Admin: 03/03/17 10:42 Dose: 1 each Polyethylene Glycol (Miralax) 17 gm PO DAILY PRN PRN Reason: Constipation Simvastatin (Zocor) 10 mg PO BEDTIME [facility] Last Admin: 03/02/17 22:12 Dose: 10 mg Sodium Chloride (Saline Flush) 10 ml FLUSH ASDIRECTED PRN PRN Reason: Keep Vein Open Last Admin: 02/28/17 12:23 Dose: 10 ml Discontinued Medications Bumetanide (Bumex) 1 mg IVPUSH ONETIME ONE Stop: 03/01/17 16:01 Last Admin: 03/02/17 17:07 Dose: Not Given Bumetanide (Bumex) 1 mg IVPUSH ONETIME ONE Stop: 03/03/17 07:01 Last Admin: 03/03/17 06:24 Dose: 1 mg Furosemide (Lasix) 20 mg IVPUSH DAILY ONE Stop: 03/02/17 07:01 Last Admin: 03/02/17 06:42 Dose: 20 mg Furosemide (Lasix) 20 mg IVPUSH NOW ONE Stop: 03/02/17 10:19 Last Admin: 03/02/17 11:02 Dose: 20 mg Sodium Chloride (Normal Saline) 1,000 mls @ 999 mls/hr IV ASDIRECTED [facility] Last Admin: 02/28/17 15:58 Dose: 150 mls/hr Sodium Chloride (Normal Saline) 1,000 mls @ 999 mls/hr IV ONETIME [facility] Last Infusion: 02/28/17 15:24 Dose: Infused Sodium Chloride (Normal Saline) 1,000 mls @ 75 mls/hr IV ASDIRECTED [facility] Last Admin: 03/01/17 20:18 Dose: 75 mls/hr Lactated Ringer's (Ringers, Lactated) 1,000 mls @ 75 mls/hr IV ASDIRECTED [facility] Last Admin: 03/02/17 17:09 Dose: 75 mls/hr Magnesium Sulfate 2 gm/ Premix 50 mls @ 25 mls/hr IV ONETIME ONE Stop: 03/03/17 12:47 Last Admin: 03/03/17 10:56 Dose: 25 mls/hr Megestrol Acetate (Megace 40 Mg/Ml Susp) 400 mg PO ONETIME ONE Stop: 02/28/17 17:36 Last Admin: 02/28/17 18:13 Dose: 400 mg Megestrol Acetate (Megace 40 Mg/Ml Susp) 400 mg PO ONETIME ONE Stop: 03/02/17 16:51 Last Admin: 03/02/17 17:09 Dose: 400 mg Hydromorphone ( Dilaudid) 4 Mg Tab * *Own Med 0 mg PO Q6H PRN PRN Reason: Pain (severe 7-10) Rivaroxaban (Xarelto ) 15 Mg Tab Own Med 0 mg PO DAILY [facility] Last Admin: 03/01/17 16:17 Dose: 15 mg Potassium Chloride (Potassium Chloride) 40 meq PO ONETIME ONE Stop: 03/02/17 08:01 Last Admin: 03/02/17 08:17 Dose: 40 meq Potassium Chloride (Potassium Chloride) 40 meq PO ONETIME ONE Stop: 03/02/17 12:01 Last Admin: 03/02/17 11:02 Dose: 40 meq Potassium Chloride (Potassium Chloride) 60 meq PO ONETIME ONE Stop: 03/03/17 09:40 Last Admin: 03/03/17 10:46 Dose: 60 meq - Exam Quality Assessment: Reports: DVT Prophylaxis General: Reports: Alert, Oriented, Cooperative, No Acute Distress HEENT: Reports: Pupils Equal, Pupils Reactive, EOMI Neck: Reports: Supple, Trachea Midline Lungs: Reports: Normal Respiratory Effort Cardiovascular: Reports: Regular Rate, Irregular Rhythm GI/Abdominal Exam: Normal Bowel Sounds, Soft, Non-Tender, No Organomegaly, No Distention (Male) Exam: Deferred Rectal (Males) Exam: Deferred Back Exam: Reports: Normal Inspection Extremities: Normal Inspection Skin: Reports: Warm Neurological: Reports: No New Focal Deficit Psy/Mental Status: Reports: Alert, Normal Affect, Normal Mood *Q Meaningful Use (DIS) - VTE *Q VTE Criteria *Q: - Stroke *Q Stroke Criteria *Q: - AMI *Q AMI Criteria *Q:
[2017-03-07] MEDS ORDERED: DEXAMETHASONE 4 MG PO SCH (09:00)
== END 2017-03-03 17:00 | disposition home or self-care (01) ==
LOC: JD.ED 11:32 → JD.MS 15:11
PROVIDERS: ADMIT Internal Medicine Cardiovascular Disease; ATTEND Internal Medicine Cardiovascular Disease
DX: C90.00 Multiple myeloma not having achieved remission (principal); I12.9 Hypertensive chronic kidney disease with stage 1 through stage 4 chronic kidney disease, or unspecified chronic kidney disease; E11.22 Type 2 diabetes mellitus with diabetic chronic kidney disease; N18.4 Chronic kidney disease, stage 4 (severe); N17.9 Acute kidney failure, unspecified; I48.91 Unspecified atrial fibrillation; I25.10 Atherosclerotic heart disease of native coronary artery without angina pectoris; E03.9 Hypothyroidism, unspecified; E11.42 Type 2 diabetes mellitus with diabetic polyneuropathy; E78.5 Hyperlipidemia, unspecified; E86.0 Dehydration; K21.9 Gastro-esophageal reflux disease without esophagitis; K59.09 Other constipation; J44.9 Chronic obstructive pulmonary disease, unspecified; G47.30 Sleep apnea, unspecified; D61.818 Other pancytopenia; D50.9 Iron deficiency anemia, unspecified; Z79.4 Long term (current) use of insulin; Z79.899 Other long term (current) drug therapy; Z95.0 Presence of cardiac pacemaker; Z95.5 Presence of coronary angioplasty implant and graft; Z98.49 Cataract extraction status, unspecified eye; Z98.890 Other specified postprocedural states; Z87.891 Personal history of nicotine dependence; R06.02 Shortness of breath
CPT/HCPCS: 36415; 71020; 80048; 80053; 81001; 82330; 82962; 83036; 83605; 83735; 83880; 84132; 85025; 86140; 87040; 87804; 93005; 96361; 96365; 96375; 96376; 97161; 97165; 97530; 99285; A9270; G0378; J1940; J7040; J7050; J7120; Q0167; 93010; 96360; 99217; 99219; 99224; J3475